=== PATIENT | male | born 1965 | race Caucasian/White ===

== ENCOUNTER → 2017-07-20 | Outpatient (CLI) | payer OTHER ==
[~2017-07-20] MED LIST: ACET-1256 PO; BENA20TA14 PO; CALCTAB7 PO; CPR500 PO; MTR500 PO; RIZA10TA19 PO
== END | disposition home or self-care (01) ==
LOC: C.LABBFT 10:28
PROVIDERS: ATTEND Physician Assistant Medical
DX: R10.2 Pelvic and perineal pain (principal)

== ENCOUNTER 2017-07-23 19:24 | Inpatient (IN) | payer OTHER ==
[~2017-07-23] VITALS: Ht 180.3 cm; Wt 75.2 kg
[~2017-07-23 19:24] MED LIST changes: -CALCTAB7 PO; -CPR500 PO; -MTR500 PO; -OPTIRAY 320 IV PRN
[2017-07-23 20:33] LABS: BASO % 0.1 %; BASO ABS # 0.02 K/uL (0-0.2); EOS % 0.3 %; EOS ABS # 0.04 K/uL (0-0.5); HEMATOCRIT 41.8 % (42-52); HEMOGLOBIN 14.5 g/dL (14.0-18.0); IG# 0.03 K/uL (0.00-0.02); LYMPH % 15.7 %; LYMPH ABS # 2.22 K/uL (1.2-3.4); MEAN CELL VOLUME 88.7 fL (80-100); MEAN CORPUSCULAR HEMOGLOBIN 30.8 pg (25-34); MEAN CORPUSCULAR HGB CONC 34.7 g/dl (32-36); MEAN PLATELET VOLUME 8.3 fL (7.4-10.4); MONO % 8.8 %; MONO ABS # 1.24 K/uL (0.11-0.59); NEUT % 74.9 %; NEUT ABS # 10.56 K/uL (1.4-6.5); PLATELET COUNT 314 K/uL (130-400); RED CELL DISTRIBUTION WIDTH CV 11.7 % (11.5-14.5); RED CELL DISTRIBUTION WIDTH SD 38.1 fL (36.4-46.3); WHITE BLOOD COUNT 14.11 K/uL (4.8-10.8)
[2017-07-23 20:53] LABS: ALBUMIN 3.1 gm/dl (3.4-5.0); CREATININE 1.11 mg/dl (0.60-1.40); POTASSIUM 3.5 mmol/L (3.5-5.1)
[2017-07-23 20:55] LABS: TOTAL PROTEIN 7.2 gm/dl (6.4-8.2)
[2017-07-23] MEDS ORDERED: SODIUM CHLORIDE 0.9% 1000ML 1,000 ML IV STA (21:19)
[2017-07-23] MEDS ORDERED: PIPERACILLIN/TAZOBACTAM 4.5 GM/100ML D5W IV STA (21:19)
[2017-07-23] MEDS ORDERED: METRONIDAZOLE 500MG / 100ML NSS IV STA (21:34)
--- NOTE | 2017-07-23 22:22 | EMERGENCY ROOM VISIT NOTE ---
ED Visit Note First contact with patient: 21:10 CHIEF COMPLAINT: Abdominal pain HISTORY OF PRESENTING ILLNESS: This is a 52-year-old male who presents to the emergency department with complaint of abdominal pain. Patient states that he started having lower abdominal pain 4 days ago, constant, aching and pressure- like, worse with some movements, better with rest. He saw his PCP on Sunday and was told he had a prostate infection, was started on Cipro which he has been taking. He states that his pain got worse yesterday and he also had flulike symptoms with fevers, chills, and body aches. He has also noticed some red blood mixed in with his stool yesterday and today. He saw his PCP again today, who ordered a CT abdomen/pelvis which he had done this morning. He was called and instructed to come to the emergency department because his CT scan was abnormal. He states his pain has been well-controlled today with ibuprofen and Renwick, currently rates as 3/10. He denies any history of abdominal infections, denies any abdominal surgeries. He denies any headaches, neck pain , chest pain, shortness of breath, back pain, nausea or vomiting, diarrhea, urinary symptoms, or unusual rash. REVIEW OF SYSTEMS: A complete 10 point review of systems was reviewed with the patient with pertinent positives and negatives as per history of present illness. All else were negative. PAST MEDICAL HISTORY: Hypertension, kidney stones FAMILY HISTORY: Father and uncle with prostate cancer SOCIAL HISTORY: Lives at home. Denies tobacco use, reports occasional alcohol use, denies recreational drug use. ALLERGIES: Reviewed in chart. PHYSICAL EXAM: CONSTITUTIONAL: Pleasant and cooperative. No acute distress. Well-hydrated, well appearing and well nourished. HEENT: Normocephalic, atraumatic. Pupils equal, round and reactive to light, EOMI. TMs normal. Pharynx normal. Moist mucous membranes. NECK: Supple, full active range of motion without discomfort. RESPIRATORY: Clear to auscultation bilaterally with no wheezing, crackles, rhonchi or stridor. Equal expansion bilaterally. CARDIOVASCULAR: Regular rate and rhythm with no murmurs, rubs or gallops. Normal peripheral perfusion. No edema. GASTROINTESTINAL: Soft, mild tenderness in the suprapubic area, otherwise nontender, nondistended. No rebound tenderness or guarding. No palpable masses or HSM. Bowel sounds present in all quadrants. No CVA tenderness bilaterally. MUSCULOSKELETAL: Full range of motion of all joints without discomfort. INTEGUMENTARY: No rash or other significant dermatologic conditions noted. NEUROLOGIC: Alert and oriented X 4 with normal affect. Normal strength and sensation in all 4 extremities. No focal neurologic deficits noted. Normal speech. Normal gait observed. ED COURSE AND MEDICAL DECISION MAKING: CC: Patient presenting with complaint of abdominal pain. DIFFERENTIAL DIAGNOSIS: Includes, but not limited to diverticulitis, intra- abdominal abscess, bowel perforation, bowel obstruction, malignancy, GI bleed, among others. INTERPRETATION OF LABS: Leukocytosis with left shift, no anemia, no significant electrolyte abnormalities, normal renal function, normal liver enzymes and lipase. UA negative for infection. IMAGING: ABD/PELVIS IV CONTRAST ONLY CLINICAL HISTORY: 52 years-old Male presenting with R10.32 Left lower quadrant abdominal pain of unknown etiology. TECHNIQUE: Multidetector CT of the abdomen and pelvis was performed after the administration of intravenous contrast. IV contrast: 120 mL of Optiray 320. A dose lowering technique was used consistent with the principles of ALARA (as low as reasonably achievable). COMPARISON: 05/26/2014. CT DOSE (mGy.cm): The estimated cumulative dose is 599.01 mGycm. 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 Lung bases: Minimal basilar opacities, likely atelectasis. Normal heart size. Small pericardial effusion. No pleural effusion. Liver: Normal morphology. Well-defined hypodensity in the left hepatic lobe likely hepatic cyst or hamartoma. Patent hepatic vasculature. Biliary: No intrahepatic or extrahepatic biliary ductal dilatation. Normal gallbladder. Pancreas: Normal. Spleen: Normal. Adrenal glands: Normal. Kidneys and ureters: Bilateral punctate nonobstructing nephrolithiasis. Normal renal parenchyma. Bilateral extrarenal pelvises. No hydronephrosis. Prominent parapelvic cysts suggested in the interpolar region of the left kidney. Ureters normal. Bladder: Normal. Pelvic organs: Prostate enlargement likely secondary to benign prostatic hyperplasia. Bowel: Wall thickening of the rectum. Diverticulosis of the sigmoid colon with extensive wall thickening of the mid sigmoid colon. Extraluminal foci of gas within a rim-enhancing fluid collection within the sigmoid colon mesentery consistent with abscess. This is situated along the left superior lateral aspect of the bladder dome though a fat plane between this collection and the bladder is preserved. Multiple loops of small bowel approach this collection though appear grossly uninvolved besides slight kinking, suggesting developing adhesions in this region. Prominence of the vasa recta. Moderate stool burden in the transverse colon. Extensive focal wall thickening of the ascending colon to the level of the hepatic flexure with associated prominence of the vasa recta and multiple small mesenteric lymph nodes. The appendix is normal. No bowel obstruction. Peritoneal cavity: No free intraperitoneal gas. Loculated collection adjacent to the sigmoid colon containing gas and fluid consistent with abscess. This collection measures 3.2 cm in maximal dimension. No free intraperitoneal fluid. No peritoneal nodularity. No significant peritoneal fascial thickening or enhancement. Lymph nodes: No pathologically enlarged lymph nodes in the abdomen or pelvis. Prominent mesenteric lymph nodes associated with the ascending colon and hepatic flexure as mentioned above. Vasculature: Aorta and IVC patent and normal in caliber. Abdominal wall: Normal. Musculoskeletal: Heterogeneity of the medullary cavity with trabecular thickening evident at the right pubic bone, unchanged, possibly Paget's disease or other benign etiology. IMPRESSION: 1. Findings consistent with acute complicated sigmoid diverticulitis with an adjacent 3.2 cm abscess. No free intraperitoneal gas though the abscess contains gas and fluid. 2. Highly suspicious wall thickening of the ascending colon to the level of the hepatic flexure. This is concerning for carcinoma of the colon. Gastroenterology consultation for colonoscopy recommended. 3. Bilateral nonobstructing nephrolithiasis. The report will be called/faxed according to standard departmental protocol. MEDICATION RECONCILIATION: I attest that I have personally reviewed the patient 's current medication list. INITIAL VITAL SIGNS REVIEW: I reviewed the patient's initial vital signs and interpret them as follows: T: Afebrile; BP: Hypertensive; HR: Within normal limits; RR: Within normal limits; Pulse Ox: Within normal limits on room air. Blood pressure screening: The patient was found to have an elevated blood pressure and was referred to the inpatient team for further management. SUMMARY: Patient was evaluated at bedside, history and physical exam performed. Patient is alert and oriented, no acute distress, resting calmly in stretcher. Patient has mild tenderness of the lower abdomen to palpation, abdomen is otherwise nontender with normal bowel sounds. I did review the CT scan from earlier today, noting concern for diverticulitis and 3.2 cm abscess, as well as suspicious wall thickening of the ascending colon concerning for colon carcinoma. No evidence of pneumoperitoneum or abdominal free fluid. Orders were placed at bedside for labs, IV Zosyn and Flagyl for broad coverage, and will keep him NPO. Patient discussed with Dr. Jaquez, who agrees with my assessment and plan. Labs and imaging reviewed as above. I spoke on the phone with Dr. Winters, general surgery, who does not feel that this abscess warrants surgical intervention at this time. He agrees to consult along with the patient. Dr. Washburn with [facility] team was requested to evaluate the patient for admission. Patient will most likely need a gastroenterology consult as well for a possible colonoscopy. Patient reassessed multiple times throughout ED stay, patient remained stable and without any complaints. Patient was updated on all results and plan for admission, and he verbalized understanding and was agreeable to this plan. Current/Historical Medications Scheduled Benazepril (Lotensin), 20 MG PO HS Allergies Coded Allergies: Sulfa Antibiotics (Verified Allergy, Mild, Itching, 11/11/15) Vital Signs Date Time Temp Pulse Resp B/P (MAP) Pulse Ox O2 Delivery O2 Flow Rate FiO2 07/23/17 22:14 71 18 128/95 99 Room Air 07/23/17 19:50 37.0 88 18 144/83 93 Room Air Laboratory Results 07/23/17 19:55 Red Blood Count 4.71, Mean Corpuscular Volume 88.7, Mean Corpuscular Hemoglobin 30.8, Mean Corpuscular Hemoglobin Concent 34.7, Mean Platelet Volume 8.3, Neutrophils (%) (Auto) 74.9, Lymphocytes (%) (Auto) 15.7, Monocytes (%) (Auto) 8.8, Eosinophils (%) (Auto) 0.3, Basophils (%) (Auto) 0.1, Neutrophils # (Auto) 10.56, Lymphocytes # (Auto) 2.22, Monocytes # (Auto) 1.24, Eosinophils # (Auto) 0.04, Basophils # (Auto) 0.02 07/23/17 19:55 Test 07/23/17 19:55 07/23/17 21:56 White Blood Count 14.11 K/uL (4.8-10.8) Red Blood Count 4.71 M/uL (4.7-6.1) Hemoglobin 14.5 g/dL (14.0-18.0) Hematocrit 41.8 % (42-52) Mean Corpuscular Volume 88.7 fL (80-100) Mean Corpuscular Hemoglobin 30.8 pg (25-34) Mean Corpuscular Hemoglobin Concent 34.7 g/dl (32-36) Platelet Count 314 K/uL (130-400) Mean Platelet Volume 8.3 fL (7.4-10.4) Neutrophils (%) (Auto) 74.9 % Lymphocytes (%) (Auto) 15.7 % Monocytes (%) (Auto) 8.8 % Eosinophils (%) (Auto) 0.3 % Basophils (%) (Auto) 0.1 % Neutrophils # (Auto) 10.56 K/uL (1.4-6.5) Lymphocytes # (Auto) 2.22 K/uL (1.2-3.4) Monocytes # (Auto) 1.24 K/uL (0.11-0.59) Eosinophils # (Auto) 0.04 K/uL (0-0.5) Basophils # (Auto) 0.02 K/uL (0-0.2) RDW Standard Deviation 38.1 fL (36.4-46.3) RDW Coefficient of Variation 11.7 % (11.5-14.5) Immature Granulocyte % (Auto) 0.2 % Immature Granulocyte # (Auto) 0.03 K/uL (0.00-0.02) Anion Gap 8.0 mmol/L (3-11) Est Creatinine Clear Calc Drug Dose 84.7 ml/min Estimated GFR () 89.3 Estimated GFR (Non- 77.0 BUN/Creatinine Ratio 10.5 (10-20) Calcium Level 9.0 mg/dl (8.5-10.1) Total Bilirubin 0.3 mg/dl (0.2-1) Aspartate Amino Transf (AST/SGOT) 13 U/L (15-37) Alanine Aminotransferase (ALT/SGPT) 17 U/L (12-78) Alkaline Phosphatase 77 U/L (45-117) Total Protein 7.2 gm/dl (6.4-8.2) Albumin 3.1 gm/dl (3.4-5.0) Globulin 4.1 gm/dl (2.5-4.0) Albumin/Globulin Ratio 0.8 (0.9-2) Lipase 84 U/L (73-393) Urine Color YELLOW Urine Appearance CLEAR (CLEAR) Urine pH 6.5 (4.5-7.5) Urine Specific [place] > 1.045 (1.000-1.030) Urine Protein TRACE (NEG) Urine Glucose (UA) NEG (NEG) Urine Ketones NEG (NEG) Urine Occult Blood NEG (NEG) Urine Nitrite NEG (NEG) Urine Bilirubin NEG (NEG) Urine Urobilinogen NEG (NEG) Urine Leukocyte Esterase NEG (NEG) Urine WBC (Auto) 1-5 /hpf (0-5) Urine RBC (Auto) 0-4 /hpf (0-4) Urine Hyaline Casts (Auto) 0 /lpf (0-5) Urine Epithelial Cells (Auto) 10-20 /lpf (0-5) Urine Bacteria (Auto) NEG (NEG) Medications Administered Medications (Trade) Dose Ordered Sig/Mita Route Start Time Stop Time Status Last Admin Dose Admin Piperacillin Sod/ Tazobactam Sod (Zosyn Iv) 4.5 gm NOW STAT IV 07/23/17 21:19 07/23/17 21:22 DC 07/23/17 21:19 4.5 GM Sodium Chloride 1,000 ml @ 999 mls/hr Q1H1M STAT IV 07/23/17 21:19 07/23/17 22:19 DC 07/23/17 22:05 999 MLS/HR Metronidazole (Flagyl / Nss) 500 mg NOW STAT IV 07/23/17 21:34 07/23/17 21:35 DC 07/23/17 21:34 500 MG Departure Information Impression Primary Impression: Abscess of sigmoid colon due to diverticulitis Additional Impression: Colitis, acute Dispostion Being Evaluated By Hospitalist Condition FAIR Referrals Cuba Washington M.D. (PCP) Patient Instructions [facility] Problem Qualifiers
[2017-07-24] MEDS ORDERED: ONDANSETRON INJ 2 MG/ML 2 ML VIAL IV PRN (00:15)
[2017-07-24] MEDS ORDERED: PIPERACILL/TAZOBAC CONSULT ACTIVE PRN (00:15)
[2017-07-24] MEDS ORDERED: ZOLPIDEM TARTRATE 5 MG TAB PO PRN (00:15)
--- NOTE | 2017-07-24 00:24 | History and Physical ---
History & Physical Date & Time of Service: Jul 24, 2017 at 00:14 Chief Complaint: Diverticulitis- Referred Primary Care Physician: Cuba Washington M.D. History of Present Illness Source: patient, hospital records 52 y/o M Hx HTN, renal calculi. Presents with persistent pain in his LLQ. He has had loose stools without diarrhea, nausea, vomiting or fevers. A CT abdomen is consistent with acute sigmoid diverticulitis with an adjacent 3.2 cm abscess. Incidentally, there is thickening of the ascending colonic wall which is concerning for CA. He denies excessive weight loss, fatigue or night sweats. 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 Smoking Status: Never Smoker Drug Use: none Marital Status: Housing status: lives with family Occupational Status: employed Allergies Coded Allergies: Sulfa Antibiotics (Verified Allergy, Mild, Itching, 11/11/15) Home Medications Scheduled Benazepril (Lotensin), 20 MG PO HS Review of Systems Constitutional: No fever, No chills, No sweats Eyes: No worsening of vision ENT: No hearing loss, No unusual epistaxis, No nasal symptoms Respiratory: No cough, No sputum, No wheezing Cardiovascular: No chest pain Abdomen: + pain, No nausea Musculoskeletal: No joint pain Genitourinary - Male: No hematuria, No dysuria Neurologic: No memory loss, No paralysis, No weakness Psychiatric: No depression symptoms Endocrine: No fatigue Hematologic / Lymphatic: No abnormal bleeding/bruising Integumentary: No rash Allergic / Immunologic: No environmental allergies Physical Exam Vital Signs Date Time Temp Pulse Resp B/P (MAP) Pulse Ox O2 Delivery O2 Flow Rate FiO2 07/23/17 22:14 71 18 128/95 99 Room Air 07/23/17 19:50 37.0 88 18 144/83 93 Room Air General Appearance: WD/WN, no apparent distress Head: normocephalic Eyes: normal inspection ENT: normal ENT inspection, pharynx normal Neck: supple Respiratory/Chest: chest non-tender, lungs clear, normal breath sounds Cardiovascular: regular rate, rhythm, no edema, no gallop Abdomen/GI: + pertinent finding (Mild LLQ/suprapubic tenderness) Back: normal inspection, no CVA tenderness, no muscle spasm 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, no motor/sensory deficits, alert, oriented x 3 Skin: normal color Diagnostics Laboratory Results Results Past 24 Hours Test 07/23/17 19:55 07/23/17 21:56 Range/Units White Blood Count 14.11 4.8-10.8 K/uL Red Blood Count 4.71 4.7-6.1 M/uL Hemoglobin 14.5 14.0-18.0 g/dL Hematocrit 41.8 42-52 % Mean Corpuscular Volume 88.7 80-100 fL Mean Corpuscular Hemoglobin 30.8 25-34 pg Mean Corpuscular Hemoglobin Concent 34.7 32-36 g/dl Platelet Count 314 130-400 K/uL Mean Platelet Volume 8.3 7.4-10.4 fL Neutrophils (%) (Auto) 74.9 % Lymphocytes (%) (Auto) 15.7 % Monocytes (%) (Auto) 8.8 % Eosinophils (%) (Auto) 0.3 % Basophils (%) (Auto) 0.1 % Neutrophils # (Auto) 10.56 1.4-6.5 K/uL Lymphocytes # (Auto) 2.22 1.2-3.4 K/uL Monocytes # (Auto) 1.24 0.11-0.59 K/uL Eosinophils # (Auto) 0.04 0-0.5 K/uL Basophils # (Auto) 0.02 0-0.2 K/uL RDW Standard Deviation 38.1 36.4-46.3 fL RDW Coefficient of Variation 11.7 11.5-14.5 % Immature Granulocyte % (Auto) 0.2 % Immature Granulocyte # (Auto) 0.03 0.00-0.02 K/uL Sodium Level 137 136-145 mmol/L Potassium Level 3.5 3.5-5.1 mmol/L Chloride Level 101 98-107 mmol/L Carbon Dioxide Level 28 21-32 mmol/L Anion Gap 8.0 3-11 mmol/L Blood Urea Nitrogen 12 7-18 mg/dl Creatinine 1.11 0.60-1.40 mg/dl Est Creatinine Clear Calc Drug Dose 84.7 ml/min Estimated GFR () 89.3 Estimated GFR (Non- 77.0 BUN/Creatinine Ratio 10.5 10-20 Random Glucose 78 70-99 mg/dl Calcium Level 9.0 8.5-10.1 mg/dl Total Bilirubin 0.3 0.2-1 mg/dl Aspartate Amino Transf (AST/SGOT) 13 15-37 U/L Alanine Aminotransferase (ALT/SGPT) 17 12-78 U/L Alkaline Phosphatase 77 45-117 U/L Total Protein 7.2 6.4-8.2 gm/dl Albumin 3.1 3.4-5.0 gm/dl Globulin 4.1 2.5-4.0 gm/dl Albumin/Globulin Ratio 0.8 0.9-2 Lipase 84 73-393 U/L Urine Color YELLOW Urine Appearance CLEAR CLEAR Urine pH 6.5 4.5-7.5 Urine Specific [place] > 1.045 1.000-1.030 Urine Protein TRACE NEG Urine Glucose (UA) NEG NEG Urine Ketones NEG NEG Urine Occult Blood NEG NEG Urine Nitrite NEG NEG Urine Bilirubin NEG NEG Urine Urobilinogen NEG NEG Urine Leukocyte Esterase NEG NEG Urine WBC (Auto) 1-5 0-5 /hpf Urine RBC (Auto) 0-4 0-4 /hpf Urine Hyaline Casts (Auto) 0 0-5 /lpf Urine Epithelial Cells (Auto) 10-20 0-5 /lpf Urine Bacteria (Auto) NEG NEG Diagnostic Radiology IMPRESSION: 1. Findings consistent with acute complicated sigmoid diverticulitis with an adjacent 3.2 cm abscess. No free intraperitoneal gas though the abscess contains gas and fluid. 2. Highly suspicious wall thickening of the ascending colon to the level of the hepatic flexure. This is concerning for carcinoma of the colon. Gastroenterology consultation for colonoscopy recommended. 3. Bilateral nonobstructing nephrolithiasis. Impression Assessment and Plan 52 y/o M Hx HTN, renal calculi. Presents with persistent pain in his LLQ. He has had loose stools without diarrhea, nausea, vomiting or fevers. A CT abdomen is consistent with acute sigmoid diverticulitis with an adjacent 3.2 cm abscess. Incidentally, there is thickening of the ascending colonic wall which is concerning for CA. He denies excessive weight loss, fatigue or night sweats. 1) Diverticulitis with abscess - Provided with Zosyn, surgery consulted. NPO, IVF, analgesics provided. 2) HTN - Benazepril held pending surgery evaluation 3) R colon mass on CT - incidental. Following resolution of infection, he will need to follow with GI to evaluate for CA. AFP ordered. Should the pt require surgical intervention for diverticulitis, biopsy of mass should be considered prior, as if he requires resection he might be able to avoid 2 surgeries. Full code - Heparin prophylaxis Total time for this admit including review of labs, meds, imaging, records - discussion withpt and ER attending - 37 min Resuscitation Status VTE Prophylaxis Will order VTE Prophylaxis: Yes
[2017-07-24 01:40] VITALS: BP 156/99; PULSE 69; TEMP 36.7; O2SAT 97; O2SAT 98; Ht 180.3 cm; Wt 75.2 kg
[2017-07-24] MEDS: D5NSS + 20MEQ KCL 1,000 ML IV SCH ×3 (02:22→20:29)
[2017-07-24] MEDS: PIPERACILL/TAZOBAC IV 3.375 GM in SODIUM CHLORIDE 0.9% 100ML 100 ML IV SCH ×3 (02:22→18:22)
[2017-07-24 02:28] LABS: INR 1.1 (0.9-1.1)
[2017-07-24] MEDS: ACETAMINOPHEN 325 MG TAB PO PRN (07:17)
[2017-07-24 07:44] VITALS: BP 128/84; PULSE 69; TEMP 36.5; O2SAT 97
[2017-07-24 07:50] LABS: HEMATOCRIT 38.3 % (42-52); HEMOGLOBIN 13.5 g/dL (14.0-18.0); MEAN CELL VOLUME 87.6 fL (80-100); MEAN CORPUSCULAR HEMOGLOBIN 30.9 pg (25-34); MEAN CORPUSCULAR HGB CONC 35.2 g/dl (32-36); MEAN PLATELET VOLUME 7.9 fL (7.4-10.4); PLATELET COUNT 230 K/uL (130-400); RED CELL DISTRIBUTION WIDTH CV 11.7 % (11.5-14.5); RED CELL DISTRIBUTION WIDTH SD 37.3 fL (36.4-46.3); WHITE BLOOD COUNT 8.51 K/uL (4.8-10.8)
[2017-07-24 08:18] LABS: CALCIUM 8.1 mg/dl (8.5-10.1); CREATININE 0.84 mg/dl (0.60-1.40); POTASSIUM 3.5 mmol/L (3.5-5.1)
[2017-07-24] MEDS: HEPARIN SOD 5000 UNIT/0.5 ML CARP SQ SCH ×2 (09:00→20:31)
--- NOTE | 2017-07-24 10:35 | Surgery Consultation ---
Consultation Date of Consultation: Jul 24, 2017. Attending Physician: Hugo Washburn M.D. History of Present Illness 52 y/o M Hx HTN, renal calculi. Presents with persistent pain in his LLQ. He has had loose stools without diarrhea, nausea, vomiting or fevers. A CT abdomen is consistent with acute sigmoid diverticulitis with an adjacent 3.2 cm abscess. Incidentally, there is thickening of the ascending colonic wall which is concerning for CA. He denies excessive weight loss, fatigue or night sweats. I saw pt at bedside, I reviewed pt's H/P with pt, now pt feels much better, pt denies abdominal pain, no nausea, no vomiting, no fever, passed BM, Past Medical/Surgical History Medical Problems: (1) Abscess of sigmoid colon due to diverticulitis Status: Acute (2) Colitis, acute Status: Acute (3) Eye foreign body Status: Acute Social History Smoking Status: Never Smoker Smokeless Tobacco Use: No Alcohol Use: occasionally Drug Use: none Marital Status: Housing Status: lives with family Occupation Status: employed Allergies Coded Allergies: Sulfa Antibiotics (Verified Allergy, Mild, Itching, 11/11/15) Home Medications Scheduled Benazepril (Lotensin), 20 MG PO HS Current Inpatient Medications Current Inpatient Medications Medications (Trade) Dose Ordered Sig/Mita Route Start Time Stop Time Status Last Admin Dose Admin Benazepril HCl (Lotensin Tab) 20 mg HS PO 07/24/17 21:00 08/23/17 20:59 Piperacillin Sod/ Tazobactam Sod 3.375 gm/Sodium Chloride 115 ml @ 28.75 mls/ hr Q8H IV 07/24/17 02:00 08/03/17 01:59 07/24/17 09:49 28.75 MLS/HR Miscellaneous Information (Consult) 1 ea UD PRN N/A 07/24/17 00:15 08/23/17 00:14 Acetaminophen (Tylenol Tab) 650 mg Q4H PRN PO 07/24/17 00:15 08/23/17 00:14 07/24/17 07:17 650 MG Zolpidem Tartrate (Ambien Tab) 5 mg HSZ PRN PO 07/24/17 00:15 08/23/17 00:14 Ondansetron HCl (Zofran Inj) 4 mg Q6H PRN IV 07/24/17 00:15 08/23/17 00:14 07/24/17 09:49 4 MG Heparin Sodium (Porcine) (Heparin Sq 5000 Unit/0.5ml) 5,000 unit Q12H SQ 07/24/17 09:00 08/23/17 08:59 Potassium Chloride/Dextrose/ Sod Cl 1,000 ml @ 100 mls/hr Q10H IV 07/24/17 02:00 07/25/17 07:59 07/24/17 02:22 100 MLS/HR Review of Systems Constitutional: No fever, No chills, No sweats, No weight loss, No weakness, No fatigue, No problem reported Eyes: No worsening of vision, No eye pain, No redness, No discharge, No diplopia, No problem reported ENT: No hearing loss, No unusual epistaxis, No nasal symptoms, No sore throat, No tinnitus, No dental problems, No trouble swallowing, No problem reported Respiratory: No cough, No sputum, No wheezing, No shortness of breath, No dyspnea on exertion, No dyspnea at rest, No hemoptysis, No problem reported Cardiovascular: No chest pain, No orthopnea, No PND, No edema, No claudication , No palpitations, No problem reported Abdomen: No pain, No nausea, No vomiting, No diarrhea, No constipation, No GI bleeding, No problem reported Musculoskeletal: No joint pain, No muscle pain, No swelling, No calf pain, No problem reported Genitourinary - Male: No hematuria, No dysuria, No urinary frequency, No urinary urgency, No urinary hesitancy, No urinary retention, No urinary incontinence, No penile discharge, No lesions, No impotence, No problem reported Neurologic: No memory loss, No paralysis, No weakness, No numbness/tingling, No vertigo, No balance problems, No problem reported Psychiatric: No depression symptoms, No anhedonism, No anxiety, No insomnia, No substance abuse, No problem reported Endocrine: No fatigue, No excessive thirst, No excessive urination, No problem reported Hematologic / Lymphatic: No abnormal bleeding/bruising, No clotting problems, No swollen lymph nodes, No night sweats, No problem reported Physical Exam Date Time Temp Pulse Resp B/P (MAP) Pulse Ox O2 Delivery O2 Flow Rate FiO2 07/24/17 07:44 36.5 69 18 128/84 (99) 97 Room Air 07/24/17 07:05 Room Air 07/24/17 01:40 98 Room Air 07/24/17 01:40 36.7 69 14 156/99 (118) 97 Room Air 07/24/17 01:40 36.7 69 14 156/99 98 Room Air 07/24/17 01:26 68 18 139/91 98 07/24/17 00:10 77 18 129/89 99 Room Air 07/23/17 22:14 71 18 128/95 99 Room Air 07/23/17 19:50 37.0 88 18 144/83 93 Room Air General Appearance: WD/WN, no apparent distress Head: normocephalic Eyes: normal inspection ENT: normal ENT inspection Neck: supple, no JVD Respiratory/Chest: chest non-tender, lungs clear, normal breath sounds, no respiratory distress Cardiovascular: regular rate, rhythm, no edema, no gallop, no JVD, no murmur Abdomen/GI: normal bowel sounds, non tender, soft, no organomegaly, no pulsatile mass Extremities/Musculoskelatal: normal inspection, no calf tenderness, normal capillary refill Neurologic/Psych: no motor/sensory deficits, alert, normal mood/affect Skin: normal color, warm/dry, no rash Lymphatic: no adenopathy Laboratory Results Last 24 Hours Test 07/23/17 19:55 07/23/17 21:56 07/24/17 07:38 White Blood Count 14.11 K/uL 8.51 K/uL Red Blood Count 4.71 M/uL 4.37 M/uL Hemoglobin 14.5 g/dL 13.5 g/dL Hematocrit 41.8 % 38.3 % Mean Corpuscular Volume 88.7 fL 87.6 fL Mean Corpuscular Hemoglobin 30.8 pg 30.9 pg Mean Corpuscular Hemoglobin Concent 34.7 g/dl 35.2 g/dl Platelet Count 314 K/uL 230 K/uL Mean Platelet Volume 8.3 fL 7.9 fL Neutrophils (%) (Auto) 74.9 % Lymphocytes (%) (Auto) 15.7 % Monocytes (%) (Auto) 8.8 % Eosinophils (%) (Auto) 0.3 % Basophils (%) (Auto) 0.1 % Neutrophils # (Auto) 10.56 K/uL Lymphocytes # (Auto) 2.22 K/uL Monocytes # (Auto) 1.24 K/uL Eosinophils # (Auto) 0.04 K/uL Basophils # (Auto) 0.02 K/uL RDW Standard Deviation 38.1 fL 37.3 fL RDW Coefficient of Variation 11.7 % 11.7 % Immature Granulocyte % (Auto) 0.2 % Immature Granulocyte # (Auto) 0.03 K/uL Prothrombin Time 11.5 SECONDS Prothromb Time International Ratio 1.1 Sodium Level 137 mmol/L 138 mmol/L Potassium Level 3.5 mmol/L 3.5 mmol/L Chloride Level 101 mmol/L 106 mmol/L Carbon Dioxide Level 28 mmol/L 24 mmol/L Anion Gap 8.0 mmol/L 8.0 mmol/L Blood Urea Nitrogen 12 mg/dl 13 mg/dl Creatinine 1.11 mg/dl 0.84 mg/dl Est Creatinine Clear Calc Drug Dose 84.7 ml/min 111.9 ml/min Estimated GFR () 89.3 118.3 Estimated GFR (Non- 77.0 102.1 BUN/Creatinine Ratio 10.5 15.3 Random Glucose 78 mg/dl 91 mg/dl Calcium Level 9.0 mg/dl 8.1 mg/dl Total Bilirubin 0.3 mg/dl Aspartate Amino Transf (AST/SGOT) 13 U/L Alanine Aminotransferase (ALT/SGPT) 17 U/L Alkaline Phosphatase 77 U/L Total Protein 7.2 gm/dl Albumin 3.1 gm/dl Globulin 4.1 gm/dl Albumin/Globulin Ratio 0.8 Lipase 84 U/L Urine Color YELLOW Urine Appearance CLEAR Urine pH 6.5 Urine Specific [place] > 1.045 Urine Protein TRACE Urine Glucose (UA) NEG Urine Ketones NEG Urine Occult Blood NEG Urine Nitrite NEG Urine Bilirubin NEG Urine Urobilinogen NEG Urine Leukocyte Esterase NEG Urine WBC (Auto) 1-5 /hpf Urine RBC (Auto) 0-4 /hpf Urine Hyaline Casts (Auto) 0 /lpf Urine Epithelial Cells (Auto) 10-20 /lpf Urine Bacteria (Auto) NEG Magnesium Level 2.1 mg/dl Assessment & Plan FINDINGS: End Worker topogram: Unremarkable. Lung bases: Minimal basilar opacities, likely atelectasis. Normal heart size. Small pericardial effusion. No pleural effusion. Liver: Normal morphology. Well-defined hypodensity in the left hepatic lobe likely hepatic cyst or hamartoma. Patent hepatic vasculature. Biliary: No intrahepatic or extrahepatic biliary ductal dilatation. Normal gallbladder. Pancreas: Normal. Spleen: Normal. Adrenal glands: Normal. Kidneys and ureters: Bilateral punctate nonobstructing nephrolithiasis. Normal renal parenchyma. Bilateral extrarenal pelvises. No hydronephrosis. Prominent parapelvic cysts suggested in the interpolar region of the left kidney. Ureters normal. Bladder: Normal. Pelvic organs: Prostate enlargement likely secondary to benign prostatic hyperplasia. Bowel: Wall thickening of the rectum. Diverticulosis of the sigmoid colon with extensive wall thickening of the mid sigmoid colon. Extraluminal foci of gas within a rim-enhancing fluid collection within the sigmoid colon mesentery consistent with abscess. This is situated along the left superior lateral aspect of the bladder dome though a fat plane between this collection and the bladder is preserved. Multiple loops of small bowel approach this collection though appear grossly uninvolved besides slight kinking, suggesting developing adhesions in this region. Prominence of the vasa recta. Moderate stool burden in the transverse colon. Extensive focal wall thickening of the ascending colon to the level of the hepatic flexure with associated prominence of the vasa recta and multiple small mesenteric lymph nodes. The appendix is normal. No bowel obstruction. Peritoneal cavity: No free intraperitoneal gas. Loculated collection adjacent to the sigmoid colon containing gas and fluid consistent with abscess. This collection measures 3.2 cm in maximal dimension. No free intraperitoneal fluid. No peritoneal nodularity. No significant peritoneal fascial thickening or enhancement. Lymph nodes: No pathologically enlarged lymph nodes in the abdomen or pelvis. Prominent mesenteric lymph nodes associated with the ascending colon and hepatic flexure as mentioned above. Vasculature: Aorta and IVC patent and normal in caliber. Abdominal wall: Normal. Musculoskeletal: Heterogeneity of the medullary cavity with trabecular thickening evident at the right pubic bone, unchanged, possibly Paget's disease or other benign etiology. IMPRESSION: 1. Findings consistent with acute complicated sigmoid diverticulitis with an adjacent 3.2 cm abscess. No free intraperitoneal gas though the abscess contains gas and fluid. 2. Highly suspicious wall thickening of the ascending colon to the level of the hepatic flexure. This is concerning for carcinoma of the colon. Gastroenterology consultation for colonoscopy recommended. 3. Bilateral nonobstructing nephrolithiasis. Assessment: pt is a 52 year old male who was admitted to hospital for acute sigmoid diverticulitis with abscess, and ascending colon thickening p is doing better, no abdominal pain, IMP: acute sigmoid diverticulitis with abscess, and ascending colon thickening plan: consult GI for colonoscopy to R/O ascending colon polyps or tumor continue IV antibiotic, clear diet, will F/U
--- NOTE | 2017-07-24 11:48 | Gastrointestinal Consultation ---
Gastrointestinal Consultation Date of Consultation: Jul 24, 2017 Attending Physician: Johnny Consulting Physician: Alejandra Reason for Consultation: abnormal CT scan History of Present Illness Patient is a 52 year old male w/ history of HTN, migraines who presented to [facility] from OP clinic for abnormal CT imaging. Pt was seen and evaluated, chart reviewed. Pt notes he was in his typical state of health up until about three weeks ago. Generalized abdominal pain. Intermittent throughout the day, worse at night associated with bloating. Pain persisted and he presented to his PCP who prescribed cipro for prostatitis. Symptoms persisted, returned to PCP who ordered CT which was concerning for sigmoid diverticulitis with microperforation and 3 CM abscess. Pt was admitted, started on IV ABX and evaluated by general surgery who at this time suggested conservative management. He does not improvement of his symptoms overnight. Now with mild generalized abdominal tenderness, only present w/ deep palpation. No nausea, vomiting. Has been having looser stools. Was having some BRB streaking limited to the toilet paper. No night sweats, weight loss, fever, chills, CP, SOB CT ABD/Pelvis: Findings consistent with acute complicated sigmoid diverticulitis with an adjacent 3.2 cm abscess. No free intraperitoneal gas though the abscess contains gas and fluid. Highly suspicious wall thickening of the ascending colon to the level of the hepatic flexure. This is concerning for carcinoma of the colon. Gastroenterology consultation for colonoscopy recommended. Bilateral nonobstructing nephrolithiasis. EGD: none Colonoscopy: none Family history of colon CA: none - although it is mentioned that his father has colon CA in previous notes Family history of colonic polyp: none Past Medical/Surgical History Medical Problems: (1) Abscess of sigmoid colon due to diverticulitis Status: Acute (2) Colitis, acute Status: Acute (3) Eye foreign body Status: Acute Past Medical History: HTN, migraines Past Surgical History: none Social History Smoking Status: Never Smoker Alcohol Use: none Drug Use: none Marital Status: Housing Status: lives with family Occupation Status: employed Allergies Coded Allergies: Sulfa Antibiotics (Verified Allergy, Mild, Itching, 11/11/15) Current Medications Home Meds and Scripts Medications Dose Route/Sig Max Daily Dose Days Date Category Lotensin (Benazepril HCl) 20 Mg Tab 20 Mg PO HS 06/22/14 Reported Review of Systems Constitutional: No fever, No chills, No weight loss, No weakness, No fatigue Respiratory: No cough, No shortness of breath Cardiac: No chest pain, No edema Abdomen: + pain, No nausea, No vomiting, No diarrhea, No constipation, No GI bleeding Physical Exam Date Time Temp Pulse Resp B/P (MAP) Pulse Ox O2 Delivery O2 Flow Rate FiO2 07/24/17 07:44 36.5 69 18 128/84 (99) 97 Room Air 07/24/17 07:05 Room Air 07/24/17 01:40 98 Room Air 07/24/17 01:40 36.7 69 14 156/99 (118) 97 Room Air 07/24/17 01:40 36.7 69 14 156/99 98 Room Air 07/24/17 01:26 68 18 139/91 98 07/24/17 00:10 77 18 129/89 99 Room Air 07/23/17 22:14 71 18 128/95 99 Room Air 07/23/17 19:50 37.0 88 18 144/83 93 Room Air General Appearance: no apparent distress Eyes: PERRL ENT: hearing grossly normal Neck: supple, trachea midline Respiratory/Chest: lungs clear, normal breath sounds, no respiratory distress, no accessory muscle use Cardiovascular: regular rate, rhythm, no edema, no JVD, no murmur Abdomen: normal bowel sounds, soft, no organomegaly, no pulsatile mass, + tenderness (LLQ pain with palpation ) Neurologic/Psych: alert, normal mood/affect, oriented x 3 Skin: normal color, warm/dry, no rash Laboratory Results Last 24 Hours Test 07/23/17 19:55 07/23/17 21:56 07/24/17 07:38 White Blood Count 14.11 K/uL 8.51 K/uL Red Blood Count 4.71 M/uL 4.37 M/uL Hemoglobin 14.5 g/dL 13.5 g/dL Hematocrit 41.8 % 38.3 % Mean Corpuscular Volume 88.7 fL 87.6 fL Mean Corpuscular Hemoglobin 30.8 pg 30.9 pg Mean Corpuscular Hemoglobin Concent 34.7 g/dl 35.2 g/dl Platelet Count 314 K/uL 230 K/uL Mean Platelet Volume 8.3 fL 7.9 fL Neutrophils (%) (Auto) 74.9 % Lymphocytes (%) (Auto) 15.7 % Monocytes (%) (Auto) 8.8 % Eosinophils (%) (Auto) 0.3 % Basophils (%) (Auto) 0.1 % Neutrophils # (Auto) 10.56 K/uL Lymphocytes # (Auto) 2.22 K/uL Monocytes # (Auto) 1.24 K/uL Eosinophils # (Auto) 0.04 K/uL Basophils # (Auto) 0.02 K/uL RDW Standard Deviation 38.1 fL 37.3 fL RDW Coefficient of Variation 11.7 % 11.7 % Immature Granulocyte % (Auto) 0.2 % Immature Granulocyte # (Auto) 0.03 K/uL Prothrombin Time 11.5 SECONDS Prothromb Time International Ratio 1.1 Sodium Level 137 mmol/L 138 mmol/L Potassium Level 3.5 mmol/L 3.5 mmol/L Chloride Level 101 mmol/L 106 mmol/L Carbon Dioxide Level 28 mmol/L 24 mmol/L Anion Gap 8.0 mmol/L 8.0 mmol/L Blood Urea Nitrogen 12 mg/dl 13 mg/dl Creatinine 1.11 mg/dl 0.84 mg/dl Est Creatinine Clear Calc Drug Dose 84.7 ml/min 111.9 ml/min Estimated GFR () 89.3 118.3 Estimated GFR (Non- 77.0 102.1 BUN/Creatinine Ratio 10.5 15.3 Random Glucose 78 mg/dl 91 mg/dl Calcium Level 9.0 mg/dl 8.1 mg/dl Total Bilirubin 0.3 mg/dl Aspartate Amino Transf (AST/SGOT) 13 U/L Alanine Aminotransferase (ALT/SGPT) 17 U/L Alkaline Phosphatase 77 U/L Total Protein 7.2 gm/dl Albumin 3.1 gm/dl Globulin 4.1 gm/dl Albumin/Globulin Ratio 0.8 Lipase 84 U/L Urine Color YELLOW Urine Appearance CLEAR Urine pH 6.5 Urine Specific [place] > 1.045 Urine Protein TRACE Urine Glucose (UA) NEG Urine Ketones NEG Urine Occult Blood NEG Urine Nitrite NEG Urine Bilirubin NEG Urine Urobilinogen NEG Urine Leukocyte Esterase NEG Urine WBC (Auto) 1-5 /hpf Urine RBC (Auto) 0-4 /hpf Urine Hyaline Casts (Auto) 0 /lpf Urine Epithelial Cells (Auto) 10-20 /lpf Urine Bacteria (Auto) NEG Magnesium Level 2.1 mg/dl Impression Patient is a 52 year old male who was admitted w/ generalized abdominal pain worse in LLQ x 3 weeks w/ acute sigmoid diverticulitis with abscess. Concern for large polyp vs malignancy of ascending colon on CT. No alarm symptoms, questionable family history of colon CA in dad. Plan - Diverticulitis - appreciate management by surgery - clear liquids - analgesia PRN - continue IV ABX - Ascending colon mass vs wall thickening - OP colonoscopy to be arranged due to acute complicated diverticulitis w/ abscess - compliance with this follow up was stressed - Please call with any questions or concerns. I performed a history and physical examination of the patient. I have discussed the patient's case, impression and plan with EDILIA Blair. Her note reflects my findings and plan. Colonoscopy after treatment of acute diverticulitis. Kunal Skelton MD
[2017-07-24] MEDS ORDERED: NURSING VERBAL MED ORDER ONE (13:00)
[2017-07-24] MEDS ORDERED: RIZATRIPTAN BENZOATE 10 MG TAB PO ONE (13:15)
[2017-07-24 14:35] VITALS: BP 105/64; PULSE 60; TEMP 36.5; O2SAT 97
[2017-07-24] MEDS: BENAZEPRIL HCL 10 MG TAB PO SCH (20:29)
--- NOTE | 2017-07-24 22:29 | Progress Note ---
Progress Note Date of Service Jul 24, 2017. Progress Note Patient reports feeling improvement in regards to his pain. Patient is asking to advance his diet today. Explained to patient that will hold off until tomorrow. Will reassess and discuss with surgery and GI team. Will continue antibiotics.
[2017-07-24 23:20] VITALS: BP 130/79; PULSE 60; TEMP 36.9; O2SAT 98
[2017-07-25] MEDS: PIPERACILL/TAZOBAC IV 3.375 GM in SODIUM CHLORIDE 0.9% 100ML 100 ML IV SCH ×3 (01:33→17:36)
[2017-07-25 08:57] VITALS: BP 124/86; PULSE 58; TEMP 36.9; O2SAT 97
[2017-07-25] MEDS: HEPARIN SOD 5000 UNIT/0.5 ML CARP SQ SCH ×2 (09:00→20:51)
[2017-07-25] MEDS: ACETAMINOPHEN 325 MG TAB PO PRN (09:22)
[2017-07-25 09:57] LABS: HEMATOCRIT 41.5 % (42-52); HEMOGLOBIN 14.6 g/dL (14.0-18.0); MEAN CELL VOLUME 88.3 fL (80-100); MEAN CORPUSCULAR HEMOGLOBIN 31.1 pg (25-34); MEAN CORPUSCULAR HGB CONC 35.2 g/dl (32-36); MEAN PLATELET VOLUME 8.2 fL (7.4-10.4); PLATELET COUNT 287 K/uL (130-400); RED CELL DISTRIBUTION WIDTH CV 11.6 % (11.5-14.5); RED CELL DISTRIBUTION WIDTH SD 37.8 fL (36.4-46.3); WHITE BLOOD COUNT 6.25 K/uL (4.8-10.8)
[2017-07-25 10:29] LABS: CALCIUM 8.8 mg/dl (8.5-10.1); CREATININE 0.93 mg/dl (0.60-1.40); POTASSIUM 4.2 mmol/L (3.5-5.1)
[2017-07-25] MEDS ORDERED: BISACODYL 5 MG TABEC PO ONE (11:15)
[2017-07-25 12:58] VITALS: BP 118/68; PULSE 70; TEMP 37.2; O2SAT 98
--- NOTE | 2017-07-25 14:00 | Surgery Progress Note ---
Surgery Progress Note Date of Service Jul 25, 2017. Subjective Post OP Day: HD # 1 + feeling well, + complaints (back pain from sitting in the bed), + ambulating, + flatus, + diet (clear liquids), No chest pain, No SOB, No bowel movement, No nausea, No vomiting Objective Vital Signs: Date Time Temp Pulse Resp B/P (MAP) Pulse Ox O2 Delivery O2 Flow Rate FiO2 07/25/17 12:58 37.2 70 20 118/68 (85) 98 Room Air 07/25/17 08:57 36.9 58 20 124/86 (99) 97 Room Air 07/25/17 08:10 Room Air 07/24/17 23:20 36.9 60 16 130/79 (96) 98 Room Air 07/24/17 19:15 Room Air 07/24/17 16:00 Room Air 07/24/17 14:35 36.5 60 18 105/64 (78) 97 Room Air General Appearance: WD/WN, no apparent distress Head: normocephalic, atraumatic Neck: trachea midline Respiratory/Chest: lungs clear, normal breath sounds, no respiratory distress, no accessory muscle use Cardiovascular: regular rate, rhythm, no murmur Abdomen: normal bowel sounds, non tender, non distended, soft, no organomegaly , no pulsatile mass Laboratory Results: Results Past 24 Hours Test 07/25/17 09:42 Range/Units White Blood Count 6.25 4.8-10.8 K/uL Red Blood Count 4.70 4.7-6.1 M/uL Hemoglobin 14.6 14.0-18.0 g/dL Hematocrit 41.5 42-52 % Mean Corpuscular Volume 88.3 80-100 fL Mean Corpuscular Hemoglobin 31.1 25-34 pg Mean Corpuscular Hemoglobin Concent 35.2 32-36 g/dl RDW Standard Deviation 37.8 36.4-46.3 fL RDW Coefficient of Variation 11.6 11.5-14.5 % Platelet Count 287 130-400 K/uL Mean Platelet Volume 8.2 7.4-10.4 fL Sodium Level 139 136-145 mmol/L Potassium Level 4.2 3.5-5.1 mmol/L Chloride Level 106 98-107 mmol/L Carbon Dioxide Level 29 21-32 mmol/L Anion Gap 5.0 3-11 mmol/L Blood Urea Nitrogen 5 7-18 mg/dl Creatinine 0.93 0.60-1.40 mg/dl Est Creatinine Clear Calc Drug Dose 101.1 ml/min Estimated GFR () 110.6 Estimated GFR (Non- 95.4 BUN/Creatinine Ratio 5.7 10-20 Random Glucose 95 70-99 mg/dl Calcium Level 8.8 8.5-10.1 mg/dl Chemistry Specimen Hemolysis Assessment & Plan Acute complicated diverticulitis- 3.2 cm abscess -vitals signs stable, afebrile, no leukocytosis - +flatus, no bowel movement - no abdominal pain - no nausea or vomiting Plan: Advance diet to low fiber diet Continue IV antibiotics, start oral antibiotics tomorrow Recommend 14 day total course of antibiotics Should follow-up with GI as an outpatient for colonoscopy to evaluate colon given concern for malignancy at ascending colon Follow-up with Dr. Turner in 2 weeks Our services singing off, call with questions or concerns Dr. Turner has seen patient, agrees with above
[2017-07-25 15:02] VITALS: BP 133/81; PULSE 70; TEMP 36.8; O2SAT 98
[2017-07-25 15:30] VITALS: O2SAT 98
[2017-07-25] MEDS ORDERED: RIZATRIPTAN BENZOATE 10 MG TAB PO ONE (17:15)
[2017-07-25 20:45] VITALS: BP 130/80; PULSE 70
[2017-07-25] MEDS: BENAZEPRIL HCL 10 MG TAB PO SCH (20:52)
--- NOTE | 2017-07-25 23:09 | Progress Note ---
Subjective Date of Service: Jul 25, 2017. Subjective Pt evaluation today including: conversation w/ patient 52 yo male reports feeling well. Patient states he would like his diet advanced, but does not like soup. He would like to go directly into a regular diet. Patient denies any fever, chills, nausea, vomiting Problem List Medical Problems: (1) Abscess of sigmoid colon due to diverticulitis Status: Acute (2) Colitis, acute Status: Acute (3) Eye foreign body Status: Acute Review of Systems Constitutional: No fever, No chills, No sweats Eyes: No worsening of vision ENT: No hearing loss, No unusual epistaxis, No nasal symptoms Respiratory: No cough, No sputum, No wheezing Cardiovascular: No chest pain Abdomen: + pain, No nausea Musculoskeletal: No joint pain Genitourinary - Male: No hematuria, No dysuria Neurologic: No memory loss, No paralysis, No weakness Psychiatric: No depression symptoms Endocrine: No fatigue Hematologic / Lymphatic: No abnormal bleeding/bruising Integumentary: No rash Allergic / Immunologic: No environmental allergies All Other Systems: Reviewed and Negative Medications Current Inpatient Medications Medications (Trade) Dose Ordered Sig/Mita Route Start Time Stop Time Status Last Admin Dose Admin Benazepril HCl (Lotensin Tab) 20 mg HS PO 07/24/17 21:00 08/23/17 20:59 07/25/17 20:52 20 MG Piperacillin Sod/ Tazobactam Sod 3.375 gm/Sodium Chloride 115 ml @ 28.75 mls/ hr Q8H IV 07/24/17 02:00 08/03/17 01:59 07/26/17 01:40 28.75 MLS/HR Miscellaneous Information (Consult) 1 ea UD PRN N/A 07/24/17 00:15 08/23/17 00:14 Acetaminophen (Tylenol Tab) 650 mg Q4H PRN PO 07/24/17 00:15 08/23/17 00:14 07/25/17 09:22 650 MG Zolpidem Tartrate (Ambien Tab) 5 mg HSZ PRN PO 07/24/17 00:15 08/23/17 00:14 Ondansetron HCl (Zofran Inj) 4 mg Q6H PRN IV 07/24/17 00:15 08/23/17 00:14 07/24/17 09:49 4 MG Heparin Sodium (Porcine) (Heparin Sq 5000 Unit/0.5ml) 5,000 unit Q12H SQ 07/24/17 09:00 08/23/17 08:59 Objective Vital Signs Date Time Temp Pulse Resp B/P (MAP) Pulse Ox O2 Delivery O2 Flow Rate FiO2 07/25/17 20:45 70 130/80 (97) 07/25/17 15:30 98 Room Air 07/25/17 15:02 36.8 70 18 133/81 (98) 98 Room Air 07/25/17 12:58 37.2 70 20 118/68 (85) 98 Room Air 07/25/17 08:57 36.9 58 20 124/86 (99) 97 Room Air 07/25/17 08:10 Room Air 07/24/17 23:20 36.9 60 16 130/79 (96) 98 Room Air Physical Exam General Appearance: WD/WN, no apparent distress Eyes: normal inspection ENT: normal ENT inspection Neck: supple, no adenopathy Respiratory/Chest: chest non-tender, lungs clear, normal breath sounds Cardiovascular: regular rate, rhythm, no edema Abdomen: normal bowel sounds, non tender, soft Extremities: normal range of motion Neurologic/Psychiatric: alert, oriented x 3 Skin: normal color Lymphatic: no adenopathy Laboratory Results Last 24 Hours Test 07/25/17 09:42 White Blood Count 6.25 K/uL Red Blood Count 4.70 M/uL Hemoglobin 14.6 g/dL Hematocrit 41.5 % Mean Corpuscular Volume 88.3 fL Mean Corpuscular Hemoglobin 31.1 pg Mean Corpuscular Hemoglobin Concent 35.2 g/dl RDW Standard Deviation 37.8 fL RDW Coefficient of Variation 11.6 % Platelet Count 287 K/uL Mean Platelet Volume 8.2 fL Sodium Level 139 mmol/L Potassium Level 4.2 mmol/L Chloride Level 106 mmol/L Carbon Dioxide Level 29 mmol/L Anion Gap 5.0 mmol/L Blood Urea Nitrogen 5 mg/dl Creatinine 0.93 mg/dl Est Creatinine Clear Calc Drug Dose 101.1 ml/min Estimated GFR () 110.6 Estimated GFR (Non- 95.4 BUN/Creatinine Ratio 5.7 Random Glucose 95 mg/dl Calcium Level 8.8 mg/dl Chemistry Specimen Hemolysis Assessment and Plan 52 y/o M Hx HTN, renal calculi. Presents with persistent pain in his LLQ. He has had loose stools without diarrhea, nausea, vomiting or fevers. A CT abdomen is consistent with acute sigmoid diverticulitis with an adjacent 3.2 cm abscess. Incidentally, there is thickening of the ascending colonic wall which is concerning for CA. He denies excessive weight loss, fatigue or night sweats. 1) Diverticulitis with abscess - Provided with Zosyn, surgery consulted. Advanced diet to low fiber. Obtained relocation specialist consult. continue IV antibiotics will switch to PO antibiotics in AM likely cipro and flagyl Recommend 14 day total course of antibiotics Should follow-up with GI as an outpatient for colonoscopy to evaluate colon given concern for malignancy at ascending colon Follow-up with Dr. Turner in 2 weeks 2) HTN - Benzepril restarted, BP at goal 3) R colon mass on CT - incidental. Following resolution of infection, he will need to follow with GI to evaluate for CA. AFP ordered. Should the pt require surgical intervention for diverticulitis, biopsy of mass should be considered prior, as if he requires resection he might be able to avoid 2 surgeries. 4)H/O kidney stones and cavities in teeth Recommend PTH and calcium vitamin d workup as outpatient Full code - Heparin prophylaxis Continued [facility] stay due to: multiple IV medications needed Discharge planning: home
[2017-07-25 23:11] VITALS: BP 115/69; PULSE 65; TEMP 37; O2SAT 97
[2017-07-26] MEDS: PIPERACILL/TAZOBAC IV 3.375 GM in SODIUM CHLORIDE 0.9% 100ML 100 ML IV SCH ×2 (01:40→09:39)
[2017-07-26 07:25] VITALS: O2SAT 98
[2017-07-26 07:50] VITALS: BP 115/69; PULSE 67; TEMP 37; O2SAT 96
[2017-07-26] MEDS: HEPARIN SOD 5000 UNIT/0.5 ML CARP SQ SCH ×2 (08:49→20:24)
[2017-07-26] MEDS ORDERED: CIPROFLOXACIN 500 MG TAB PO STA (11:16)
[2017-07-26] MEDS ORDERED: METRONIDAZOLE 500 MG TAB PO STA (11:16)
[2017-07-26] MEDS: ACETAMINOPHEN 325 MG TAB PO PRN (12:20)
[2017-07-26 15:30] VITALS: O2SAT 96
[2017-07-26 15:32] VITALS: BP 135/86; PULSE 67; TEMP 37; O2SAT 96
--- NOTE | 2017-07-26 15:56 | Progress Note ---
Subjective Date of Service: Jul 26, 2017. Subjective Pt evaluation today including: conversation w/ patient, conversation w/ family , physical exam, chart review, conversation w/ management consultant, review of inpatient medication list Generally continue feeling better, tolerate diet, has bowel movement, no nausea vomiting, no abdominal pain, no spiking fever Problem List Medical Problems: (1) Abscess of sigmoid colon due to diverticulitis Status: Acute (2) Colitis, acute Status: Acute (3) Eye foreign body Status: Acute Review of Systems Constitutional: No fever, No chills, No sweats, No weight loss, No weakness, No fatigue, No problem reported Eyes: No worsening of vision, No eye pain, No redness, No discharge, No diplopia ENT: No hearing loss, No unusual epistaxis, No nasal symptoms, No sore throat, No tinnitus, No dental problems, No trouble swallowing Respiratory: No cough, No sputum, No wheezing, No shortness of breath, No dyspnea on exertion, No dyspnea at rest, No hemoptysis Cardiac: No chest pain, No orthopnea, No PND, No edema, No claudication, No palpitations Abdomen: + problem reported (Report uncomfortable when have bowel movement), No pain, No nausea, No vomiting, No diarrhea, No constipation Musculoskeletal: No joint pain, No muscle pain, No swelling, No calf pain Male : No dysuria, No urinary frequency, No incontinence, No nocturia more than once/night, No slowing stream, No hematuria Neurologic: No memory loss, No paralysis, No weakness, No numbness/tingling, No vertigo, No balance problems Psychiatric: No depression symptoms, No anhedonism, No anxiety, No insomnia, No substance abuse Heme: No abnormal bleeding/bruising, No clotting problems, No swollen lymph nodes, No night sweats Endo: No fatigue, No excessive thirst, No excessive urination Skin: No rash, No itch, No new/changing skin lesions, No color change, No bleeding Objective Vital Signs Date Time Temp Pulse Resp B/P (MAP) Pulse Ox O2 Delivery O2 Flow Rate FiO2 07/26/17 15:32 37.0 67 16 135/86 (102) 96 Room Air 07/26/17 07:50 37.0 67 16 115/69 (84) 96 Room Air 07/26/17 07:25 98 Room Air 07/25/17 23:30 Room Air 07/25/17 23:11 37.0 65 16 115/69 (84) 97 Room Air 07/25/17 20:45 70 130/80 (97) Physical Exam General Appearance: WD/WN, no apparent distress Eyes: normal inspection, PERRL, EOMI, sclerae normal ENT: normal ENT inspection, hearing grossly normal, pharynx normal Neck: supple, no adenopathy, thyroid normal, no JVD, no carotid bruits, trachea midline Respiratory/Chest: chest non-tender, lungs clear, normal breath sounds, no respiratory distress, no accessory muscle use Cardiovascular: regular rate, rhythm, no edema, no gallop, no JVD, no murmur Abdomen: normal bowel sounds, non tender, soft, no organomegaly, no pulsatile mass Extremities: normal range of motion, non-tender, normal inspection, no pedal edema, no calf tenderness, normal capillary refill, pelvis stable Neurologic/Psychiatric: vp of customer experience strategy II-XII nml as tested, no motor/sensory deficits, alert, normal mood/affect, oriented x 3 Skin: normal color, warm/dry, no rash Lymphatic: no adenopathy Assessment and Plan 52 y/o M admitted because of diverticulitis with abscess associated with persistent pain in his LLQ. Per report he has had loose stools without diarrhea, nausea, vomiting or fevers. A CT abdomen is consistent with acute sigmoid diverticulitis with an adjacent 3.2 cm abscess. Past medical Hx HTN, renal calculi Diverticulitis with abscess Has been on Zosyn, surgery consulted, not recommend off drainage, Surgeon to start oral antibiotic today for total 14 day Should follow-up with GI as an outpatient for colonoscopy to evaluate colon given concern for malignancy at ascending colon Suit follow-up with surgeon Dr. Turner in 2 weeks Continue no fiber Continue Cipro and flagyl HTN, H/O kidney stones and cavities in teeth , Recommend PTH and calcium vitamin d workup as outpatient, but I have ordered these labs, will need to follow-up with PCP Full code - Heparin prophylaxis Continued [facility] stay due to: home environment unsafe for pt Discharge planning: home
[2017-07-26 20:41] VITALS: BP 155/96; PULSE 76
[2017-07-26] MEDS: BENAZEPRIL HCL 10 MG TAB PO SCH (20:43)
[2017-07-26] MEDS: CIPROFLOXACIN 500 MG TAB PO SCH (20:43)
[2017-07-26] MEDS: METRONIDAZOLE 500 MG TAB PO SCH (20:44)
[2017-07-26 23:41] VITALS: BP 155/95; PULSE 73; TEMP 36.5; O2SAT 98
[2017-07-27 06:43] LABS: HEMATOCRIT 39.3 % (42-52); HEMOGLOBIN 13.9 g/dL (14.0-18.0); MEAN CELL VOLUME 86.9 fL (80-100); MEAN CORPUSCULAR HEMOGLOBIN 30.8 pg (25-34); MEAN CORPUSCULAR HGB CONC 35.4 g/dl (32-36); PLATELET COUNT 284 K/uL (130-400); RED CELL DISTRIBUTION WIDTH CV 11.5 % (11.5-14.5); RED CELL DISTRIBUTION WIDTH SD 36.6 fL (36.4-46.3); WHITE BLOOD COUNT 7.48 K/uL (4.8-10.8)
[2017-07-27 07:38] VITALS: BP 137/85; PULSE 58; TEMP 36.6; O2SAT 97
[2017-07-27] MEDS: HEPARIN SOD 5000 UNIT/0.5 ML CARP SQ SCH (08:48)
[2017-07-27] MEDS: METRONIDAZOLE 500 MG TAB PO SCH (08:50)
[2017-07-27] MEDS: CIPROFLOXACIN 500 MG TAB PO SCH (08:50)
[2017-07-27] MEDS ORDERED: CALCIUM 600MG + VIT D 400 IU TAB PO SCH (09:00)
[2017-07-27] MEDS ORDERED: CALCTAB7 PO (09:37)
[2017-07-27] MEDS ORDERED: MTR500 PO ×2 (09:37→09:43)
[2017-07-27] MEDS ORDERED: CPR500 PO ×2 (09:37→09:42)
--- NOTE | 2017-07-27 09:40 | Discharge Instructions ---
Discharge Instructions Date of Service Jul 27, 2017. Admission Reason for Admission: Abscess Of Sigmoid Colon Due To Diverticulitis Discharge Discharge Diagnosis / Problem: diverticulitis with abscess Discharge Goals Goal(s): Decrease discomfort, Improve function, Increase independence, Improve disease control, Improve nutritional status, Learn about illness, Diagnostic testing, Therapeutic intervention, Prevent Disease Progression, Specific goals Activity Recommendations Activity Limitations: resume your previous activity Lifting Limitations: none Exercise/Sports Limitations: none May Resume Sexual Activity: when tolerated Shower/Bathe: no limitations Driving or Machine Use: no limitations . Instructions / Follow-Up Instructions / Follow-Up you have Diverticulitis with abscess need to continue oral antibiotic today for total 14 day you need to follow-up with GI as an outpatient for colonoscopy you need to follow-up with surgeon Dr. Turner in 2 weeks Continue low fiber - you need to follow up with your primary care physician in 1 week, - take medication as instructed, never overdose or any misuse, or take with alcohol, because misuse of medicine may cause organ damage or , call your primary care physician if have questions of medicaitons. - call your primary care physician OR go to local emergency room if has any fever/chill, chest pain, shortness of breathing, nausea/vomiting/abdominal pain , facial droop/slurry speech/local weakness, or if has any questions. - fall precaution - diet as instructed - you need to follow up with your subspecialists - you should understand that it is important to follow up the above instruction , and "not following the above instruction" may cause delayed or missed care of your medical conditions which may cause permanent organ damage and even . Current Hospital Diet Patient's current hospital diet: Low Fiber Diet Discharge Diet Recommended Diet: Low Fiber Diet, N/A Pending Studies Studies pending at discharge: no Medical Emergencies . Who to Call and When: Medical Emergencies: If at any time you feel your situation is an emergency, please call 911 immediately. . Non-Emergent Contact Non-Emergency issues call your: Primary Care Provider, Journeyman Pipe Fitter, Surgeon . . "Provider Documentation" section prepared by Marito Francisco. .
[2017-07-27 10:13] VITALS: BP 137/85; PULSE 58; TEMP 36.6; O2SAT 97
--- NOTE | 2017-07-27 14:48 | Discharge Summary ---
Discharge Summary Date of Service Jul 27, 2017. Discharge Summary Admission Date: Jul 24, 2017 at 00:09 Discharge Date: Jul 27, 2017 Principal Diagnosis: Diverticulitis with abscess Procedures: No Consultations: GI and surgeon Medication Reconciliation New Medications: Calcium Carbonate-Vitamin D W/ (Caltrate 600 Plus) 1 Tab Tab 1 TAB PO BID for 30 Days, #60 TAB Ciprofloxacin (Ciprofloxacin HCl) 500 Mg Tab 500 MG PO BID for 9 Days, #18 TAB please discard the Rx sent moment ago Metronidazole (Metronidazole) 500 Mg Tab 500 MG PO TID for 9 Days, #27 TAB please discard the Rx sent moment ago Continued Medications: Benazepril (Lotensin) 20 Mg Tab 20 MG PO HS, TAB Discharge Exam Doing okay, tolerate diet, no complaint, Review of Systems: Constitutional: No fever, No chills, No sweats, No weight loss, No weakness , No fatigue, No problem reported Eyes: No worsening of vision, No eye pain, No redness, No discharge, No diplopia, No problem reported ENT: No hearing loss, No unusual epistaxis, No nasal symptoms, No sore throat, No tinnitus, No dental problems, No trouble swallowing, No problem reported Respiratory: No cough, No sputum, No wheezing, No shortness of breath, No dyspnea on exertion, No dyspnea at rest, No hemoptysis, No problem reported Cardiovascular: No chest pain, No orthopnea, No PND, No edema, No claudication, No palpitations, No problem reported Abdomen: No pain, No nausea, No vomiting, No diarrhea, No constipation, No GI bleeding, No problem reported Musculoskeletal: No joint pain, No muscle pain, No swelling, No calf pain, No problem reported Genitourinary - Male: No hematuria, No dysuria, No urinary frequency, No urinary urgency, No urinary hesitancy, No urinary retention, No urinary incontinence, No penile discharge, No lesions, No impotence, No problem reported Neurologic: No memory loss, No paralysis, No weakness, No numbness/tingling , No vertigo, No balance problems, No problem reported Psychiatric: No depression symptoms, No anhedonism, No anxiety, No insomnia , No substance abuse, No problem reported Integumentary: No rash, No itch, No new/changing skin lesions, No color change, No bleeding, No problem reported Physical Exam: General Appearance: WD/WN Eyes: normal inspection ENT: normal ENT inspection Neck: supple, no adenopathy, thyroid normal Respiratory/Chest: chest non-tender, lungs clear, normal breath sounds Cardiovascular: regular rate, rhythm, no edema, no gallop Abdomen / GI: normal bowel sounds, non tender, soft Extremities: normal inspection, no calf tenderness, normal capillary refill Neurologic/Psychiatric: track oiler II-XII nml as tested, no motor/sensory deficits , alert Skin: normal color, warm/dry Hospital Course 52 y/o M admitted because of diverticulitis with abscess associated with persistent pain in his LLQ. Per report he has had loose stools without diarrhea, nausea, vomiting or fevers. A CT abdomen is consistent with acute sigmoid diverticulitis with an adjacent 3.2 cm abscess. Past medical Hx HTN, renal calculi Diverticulitis with abscess, stable improving Has been on Zosyn, surgery consulted, not recommend off drainage surgery, Surgeon to start oral antibiotic for total 14 day Should follow-up with GI as an outpatient for colonoscopy to evaluate colon given concern for malignancy at ascending colon Suit follow-up with surgeon Dr. Turner in 2 weeks Continue low fiber Continue Cipro and flagyl Vitamin D deficiency, HTN, H/O kidney stones and cavities in teeth , Recommend PTH and calcium vitamin d workup as outpatient, but I have ordered these labs, will need to follow-up with PCP Full code - Heparin prophylaxis Instructions / Follow-Up you have Diverticulitis with abscess need to continue oral antibiotic today for total 14 day you need to follow-up with GI as an outpatient for colonoscopy you need to follow-up with surgeon Dr. Turner in 2 weeks Continue low fiber - you need to follow up with your primary care physician in 1 week, - take medication as instructed, never overdose or any misuse, or take with alcohol, because misuse of medicine may cause organ damage or , call your primary care physician if have questions of medicaitons. - call your primary care physician OR go to local emergency room if has any fever/chill, chest pain, shortness of breathing, nausea/vomiting/abdominal pain , facial droop/slurry speech/local weakness, or if has any questions. - fall precaution - diet as instructed - you need to follow up with your subspecialists - you should understand that it is important to follow up the above instruction , and "not following the above instruction" may cause delayed or missed care of your medical conditions which may cause permanent organ damage and even . Total Time Spent: Less than 30 minutes This includes examination of the patient, discharge planning, medication reconciliation, and communication with other providers. Discharge Instructions Please refer to the electronic Patient Visit Report (Discharge Instructions) for additional information. Additional Copies To Kunal Skelton MD; Jamey Turner MD
== END 2017-07-27 11:32 | disposition home or self-care (01) | DRG 392 ==
LOC: C.EDB 19:26 → C.MSW 07-24 00:09 → ENRESERV 07-24 00:50
PROVIDERS: ADMIT Internal Medicine; ATTEND Hospitalist
DX: K57.20 Diverticulitis of large intestine with perforation and abscess without bleeding (principal); R93.3 Abnormal findings on diagnostic imaging of other parts of digestive tract; I10 Essential (primary) hypertension; E55.9 Vitamin D deficiency, unspecified; Z79.899 Other long term (current) drug therapy; Z88.8 Allergy status to other drugs, medicaments and biological substances; Z80.0 Family history of malignant neoplasm of digestive organs

== ENCOUNTER → 2017-07-23 | Outpatient (CLI) | payer OTHER ==
[~2017-07-23] MED LIST changes: +OPTIRAY 320 IV PRN
[2017-07-23 16:06] LABS: BLOOD UREA NITROGEN 11 mg/dl (7-18); CALCIUM 8.9 mg/dl (8.5-10.1); CARBON DIOXIDE 28 mmol/L (21-32); GLUCOSE 67 mg/dl (70-99); POTASSIUM 3.5 mmol/L (3.5-5.1); SODIUM 137 mmol/L (136-145)
[2017-07-23 16:31] LABS: BASO % 0.2 %; BASO ABS # 0.03 K/uL (0-0.2); EOS % 0.4 %; EOS ABS # 0.07 K/uL (0-0.5); HEMATOCRIT 41.7 % (42-52); HEMOGLOBIN 14.6 g/dL (14.0-18.0); IG# 0.05 K/uL (0.00-0.02); LYMPH ABS # 1.59 K/uL (1.2-3.4); MEAN CELL VOLUME 89.1 fL (80-100); MEAN CORPUSCULAR HEMOGLOBIN 31.2 pg (25-34); MEAN PLATELET VOLUME 8.3 fL (7.4-10.4); MONO % 10.6 %; MONO ABS # 1.68 K/uL (0.11-0.59); NEUT % 78.5 %; NEUT ABS # 12.43 K/uL (1.4-6.5); PLATELET COUNT 294 K/uL (130-400); RED CELL DISTRIBUTION WIDTH CV 11.9 % (11.5-14.5); RED CELL DISTRIBUTION WIDTH SD 38.4 fL (36.4-46.3); WHITE BLOOD COUNT 15.85 K/uL (4.8-10.8)
--- NOTE | 2017-07-23 16:56 | DIAGNOSTIC IMAGING REPORT ---
ABD/PELVIS IV CONTRAST ONLY CLINICAL HISTORY: 52 years-old Male presenting with R10.32 Left lower quadrant abdominal pain of unknown etiology. TECHNIQUE: Multidetector CT of the abdomen and pelvis was performed after the administration of intravenous contrast. IV contrast: 120 mL of Optiray 320. A dose lowering technique was used consistent with the principles of ALARA (as low as reasonably achievable). COMPARISON: 05/26/2014. CT DOSE (mGy.cm): The estimated cumulative dose is 599.01 mGycm. FINDINGS: [employer] topogram: Unremarkable. Lung bases: Minimal basilar opacities, likely atelectasis. Normal heart size. Small pericardial effusion. No pleural effusion. Liver: Normal morphology. Well-defined hypodensity in the left hepatic lobe likely hepatic cyst or hamartoma. Patent hepatic vasculature. Biliary: No intrahepatic or extrahepatic biliary ductal dilatation. Normal gallbladder. Pancreas: Normal. Spleen: Normal. Adrenal glands: Normal. Kidneys and ureters: Bilateral punctate nonobstructing nephrolithiasis. Normal renal parenchyma. Bilateral extrarenal pelvises. No hydronephrosis. Prominent parapelvic cysts suggested in the interpolar region of the left kidney. Ureters normal. Bladder: Normal. Pelvic organs: Prostate enlargement likely secondary to benign prostatic hyperplasia. Bowel: Wall thickening of the rectum. Diverticulosis of the sigmoid colon with extensive wall thickening of the mid sigmoid colon. Extraluminal foci of gas within a rim-enhancing fluid collection within the sigmoid colon mesentery consistent with abscess. This is situated along the left superior lateral aspect of the bladder dome though a fat plane between this collection and the bladder is preserved. Multiple loops of small bowel approach this collection though appear grossly uninvolved besides slight kinking, suggesting developing adhesions in this region. Prominence of the vasa recta. Moderate stool burden in the transverse colon. Extensive focal wall thickening of the ascending colon to the level of the hepatic flexure with associated prominence of the vasa recta and multiple small mesenteric lymph nodes. The appendix is normal. No bowel obstruction. Peritoneal cavity: No free intraperitoneal gas. Loculated collection adjacent to the sigmoid colon containing gas and fluid consistent with abscess. This collection measures 3.2 cm in maximal dimension. No free intraperitoneal fluid. No peritoneal nodularity. No significant peritoneal fascial thickening or enhancement. Lymph nodes: No pathologically enlarged lymph nodes in the abdomen or pelvis. Prominent mesenteric lymph nodes associated with the ascending colon and hepatic flexure as mentioned above. Vasculature: Aorta and IVC patent and normal in caliber. Abdominal wall: Normal. Musculoskeletal: Heterogeneity of the medullary cavity with trabecular thickening evident at the right pubic bone, unchanged, possibly Paget's disease or other benign etiology. IMPRESSION: 1. Findings consistent with acute complicated sigmoid diverticulitis with an adjacent 3.2 cm abscess. No free intraperitoneal gas though the abscess contains gas and fluid. 2. Highly suspicious wall thickening of the ascending colon to the level of the hepatic flexure. This is concerning for carcinoma of the colon. Gastroenterology consultation for colonoscopy recommended. 3. Bilateral nonobstructing nephrolithiasis. The report will be called/faxed according to standard departmental protocol. Electronically signed by: Bolivar Reese M.D. 07/23/2017 4:55 PM Dictated Date/Time: 07/23/2017 4:46 PM
== END | disposition home or self-care (01) ==
LOC: C.CTS 15:05
PROVIDERS: ATTEND Nurse Practitioner
DX: R10.32 Left lower quadrant pain (principal); N20.0 Calculus of kidney

== ENCOUNTER 2020-05-20 17:20 | Observation (INO) ==
[2020-05-20] MEDS ORDERED: PIPERACILLIN/TAZOBACTAM 4.5 GM/120 ML BAG IV ONE (17:28)
[2020-05-20] MEDS: SODIUM CHLORIDE 0.9% 1000ML 1,000 ML IV SCH (17:54)
[2020-05-20 17:56] LABS: Basophils # (auto) 0.03 K/uL (0-0.2); Basophils % (auto) 0.3 %; Eosinophils # (auto) 0.04 K/uL (0-0.5); Eosinophils % (auto) 0.4 %; Hematocrit (blood only) 48.1 % (42-52); Hemoglobin 17.3 g/dL (14.0-18.0); Immature Granulocytes # (auto) 0.02 K/uL (0.00-0.02); Immature Granulocytes % (auto) 0.2 %; Lymphocytes # (auto) 1.39 K/uL (1.2-3.4); Lymphocytes % (auto) 12.6 %; Mean Corpuscular Volume 89.1 fL (80-100); Mean Platelet Volume 8.1 fL (7.4-10.4); Monocytes # (auto) 0.85 K/uL (0.11-0.59); Monocytes % (auto) 7.7 %; Neutrophils # (auto) 8.68 K/uL (1.4-6.5); Neutrophils % (auto) 78.8 %; Platelet Count 261 K/uL (130-400); RDW Coefficient of Variation 11.7 % (11.5-14.5); RDW Standard Deviation 37.8 fL (36.4-46.3); White Blood Count 11.01 K/uL (4.8-10.8)
--- NOTE | 2020-05-20 18:10 | Emergency Department Note ---
History of Present Illness General Chief Complaint: Abdominal Pain Stated Complaint: DIVERTICULITIS,ABCESS,HERE FOR CT AND SENT BACK Time Seen by Provider: 05/20/20 17:28 History of Present Illness Provider Complaint: abdominal pain Onset (ago): 3 day(s) Pain Consistency: intermittent Location: LLQ Radiation: none Severity: moderate Maximum Pain Intensity: 7 Current Pain Intensity: 7 Quality: + aching Relieved By: + nothing Exacerbated By: + nothing Context: + history of similar episodes (History diverticulitis); no foreign travel, no possible food poisoning, no sick contacts, no recent antibiotic use and no recent surgery/procedure Associated Symptoms: no nausea, no vomiting, no diarrhea, no fever, no chills, no constipation, no dysuria, no hematemesis, no hematochezia, no melena, no hematuria, no anorexia, no syncope, no headache, no neck pain, no back pain, no chest pain, no weakness and no numbness Home Medications Medication Instructions Recorded Confirmed Type hydrocortisone 2.5 % topical cream 1 applic UT BID PRN #30 g 01/30/20 05/20/20 Rx with perineal applicator rizatriptan 5 mg tablet See Rx Instructions PO .COMPLEX 01/30/20 05/20/20 Rx #12 tab sildenafil (pulm.hypertension) 20 20 mg PO .COMPLEX #50 tab 04/21/20 05/20/20 Rx mg tablet benazepril 20 mg tablet 20 mg PO DAILY #90 tab 04/22/20 05/20/20 Rx hydrochlorothiazide 25 mg tablet 25 mg PO DAILY #90 tab 04/22/20 05/20/20 Rx ciprofloxacin HCl 500 mg tablet 500 mg PO BID 10 Days #20 tab 05/19/20 05/20/20 Rx metronidazole 500 mg tablet 500 mg PO TID 10 Days #30 tab 05/19/20 05/20/20 Rx turmeric 0 mg PO DAILY 05/20/20 05/20/20 History Allergies Allergy/AdvReac Type Severity Reaction Status Date / Time hydrocodone Allergy Mild pruiritis Verified 05/20/20 08:33 Sulfa (Sulfonamide Allergy Mild Itching Verified 05/20/20 08:33 Antibiotics) sulfamethoxazole Allergy Verified 05/20/20 08:33 Past Med/Surg History Medical History (Updated 05/20/20 @ 19:14 by Joe Jaquez) Acquired deviated nasal septum External hemorrhoid Hypercholesterolemia Hypertension Left lower quadrant abdominal pain of unknown etiology Nephrolithiasis Oral soft tissue disease Surgical History History of hand surgery History of vasectomy Family History Father Prostate cancer Kidney stone Mother Hypertension Brother Hypertension Social History Smoking Status: Never smoker Hx Alcohol Use: Yes Hx Substance Use: No Preferred Language: Croatian marital status: current occupational status: employed Feels Safe at Home: Yes caffeine: Yes Review of Systems A total of 10 systems reviewed and were otherwise negative Physical Exam Vital Signs: Vital Signs - 24 hr 05/20/20 17:25 05/20/20 17:48 05/20/20 17:51 Temperature 36.2 C L Temperature Source Temporal Artery Sc an Pulse Rate 101 H 93 H Pulse Rate [Apical ] 91 H Pulse Rate from Sp O2 Sensor 92 H Respiratory Rate 18 21 20 Respiratory Effort / Characteristics Non-Labored Sponta neous Non-Labored Sponta neous Respiratory Depth Normal Normal Respiratory Patter n Regular Regular Blood Pressure 135/87 130/82 Blood Pressure [Ri ght Arm] 130/82 Blood Pressure Magi n 103 98 Blood Pressure Magi n [Right Arm] 98 Blood Pressure Pos ition Sitting Pulse Oximetry 98 96 96 Oxygen Delivery Me thod Room Air Room Air Sepsis Recent Feve r Within 48 Hours No Sepsis New/Unexpla ined Change in Men trino Status N/A Sepsis Action Take n by Nursing No Action Required 05/20/20 17:54 05/20/20 18:00 05/20/20 18:01 Temperature Temperature Source Pulse Rate 90 88 90 Pulse Rate [Apical ] Pulse Rate from Sp O2 Sensor 89 89 89 Respiratory Rate 23 17 22 Respiratory Effort / Characteristics Respiratory Depth Respiratory Patter n Blood Pressure 119/84 Blood Pressure [Ri ght Arm] Blood Pressure Magi n 95 Blood Pressure Magi n [Right Arm] Blood Pressure Pos ition Pulse Oximetry 96 95 96 Oxygen Delivery Me thod Sepsis Recent Feve r Within 48 Hours Sepsis New/Unexpla ined Change in Men trino Status Sepsis Action Take n by Nursing 05/20/20 18:30 05/20/20 19:00 Temperature Temperature Source Pulse Rate 90 84 Pulse Rate [Apical ] Pulse Rate from Sp O2 Sensor 91 H 85 Respiratory Rate 14 20 Respiratory Effort / Characteristics Respiratory Depth Respiratory Patter n Blood Pressure 120/83 121/81 Blood Pressure [Ri ght Arm] Blood Pressure Magi n 95 94 Blood Pressure Magi n [Right Arm] Blood Pressure Pos ition Pulse Oximetry 97 97 Oxygen Delivery Me thod Room Air Sepsis Recent Feve r Within 48 Hours Sepsis New/Unexpla ined Change in Men trino Status Sepsis Action Take n by Nursing Physical Exam: Physical Exam GENERAL: He is oriented to person, place, and time. He appears well-developed and well-nourished. He does not appear distressed. HENT: Exam performed. - Head: Normocephalic and atraumatic. - Right Ear: External ear normal. No mastoid tenderness. - Left Ear: External ear normal. No mastoid tenderness. - Mouth/Throat: The oropharynx is clear and moist. No trismus in the jaw. No dental abscesses or uvula swelling. No oropharyngeal exudate or tonsillar abscesses. EYES: Conjunctivae and EOM are normal. Pupils are equal, round, and reactive to light. Right eye exhibits no discharge. Left eye exhibits no discharge. No scleral icterus. NECK: Normal range of motion. Neck supple. No JVD present. No spinous process tenderness present. No carotid bruit present. No rigidity. No tracheal deviation and normal range of motion present. No Brudzinski's sign and no Kernig's sign noted. CV: Normal rate, regular rhythm, normal heart sounds and intact distal pulses. There is no peripheral edema. Palpable radial pulses bue. PULM/CHEST: Effort normal and breath sounds normal. No respiratory distress. No stridor. He has no wheezes. He has no rales. - Chest Wall: He exhibits no tenderness. ABD: The abdomen is soft. Bowel sounds are normal. He has no distension. No mass is present. There is no tenderness. There is no rebound, no guarding, no Skinner's sign and no tenderness at McBurney's point. Rovsig negative. MUSC/SKEL: Normal range of motion. There is no peripheral edema, tenderness or deformity. LYMPH: No cervical adenopathy. NEURO: He is alert and oriented to person, place, and time. He has normal strength. No cranial nerve deficit or sensory deficit. Coordination and gait normal. GCS eye subscore is 4. GCS verbal subscore is 5. GCS motor subscore is 6. Cerebellar tests wnl. SKIN: Skin is warm and dry. He is not diaphoretic. PSYCH: He has a normal mood and affect. Behavior is normal. Judgment and thought content normal. Course Course 172: The patient was evaluated in room A12. A complete history and physical exam was performed. Administered Medications Sodium Chloride (Nss 1000ml) 1,000 mls @ 80 mls/hr IV .[id number] SATHISH Stop: 06/19/20 17:29 Last Admin: 05/20/20 17:54 Dose: 80 mls/hr Documented by: [id number] Discontinued Medications Piperacillin Sod/Tazobactam Sod (Zosyn) 4.5 gm in 120 mls @ 240 mls/hr IV NOW ONE Stop: 05/20/20 17:57 Last Infusion: 05/20/20 18:27 Dose: 0 mls/hr Documented by: [id number] Admin: 05/20/20 17:55 Dose: 240 mls/hr Documented by: [id number] Medical Decision Making Laboratory Data Result diagrams: 05/20/20 17:47 05/20/20 17:47 Lab Results 05/20/20 05/20/20 05/20/20 Range/Units 17:47 17:47 18:30 WBC 11.01 H (4.8-10.8) K/uL RBC 5.40 (4.7-6.1) M/uL Hgb 17.3 (14.0-18.0) g/dL Hct 48.1 (42-52) % MCV 89.1 (80-100) fL MCH 32.0 (25-34) pg MCHC 36.0 (32-36) g/dL RDW Std Deviation 37.8 (36.4-46.3) fL RDW Coeff of Nick 11.7 (11.5-14.5) % Plt Count 261 (130-400) K/uL MPV 8.1 (7.4-10.4) fL Immature Gran % (Auto) 0.2 % Neut % (Auto) 78.8 % Lymph % (Auto) 12.6 % Orange % (Auto) 7.7 % Eos % (Auto) 0.4 % Baso % (Auto) 0.3 % Neut # (Auto) 8.68 H (1.4-6.5) K/uL Lymph # (Auto) 1.39 (1.2-3.4) K/uL Orange # (Auto) 0.85 H (0.11-0.59) K/uL Eos # (Auto) 0.04 (0-0.5) K/uL Baso # (Auto) 0.03 (0-0.2) K/uL Immature Gran # (Auto) 0.02 (0.00-0.02) K/uL Sodium 134 L (136-145) mmol/L Potassium 3.8 (3.5-5.1) mmol/L Chloride 97 L (98-107) mmol/L Carbon Dioxide 31 (21-32) mmol/L Anion Gap 6.0 (3-11) BUN 21 H (7-18) mg/dl Creatinine 1.24 (0.6-1.4) mg/dl Est Cr Clr Drug Dosing 71.1 ml/min Est GFR ( Amer) 76.4 Est GFR (Non-Af Amer) 66.0 BUN/Creatinine Ratio 17.2 (10-20) Glucose 117 H (70-99) mg/dl Calcium 9.9 (8.5-10.1) mg/dl COVID-19 Eval Order Covid19 IDNow atMWIC SARS-CoV-2, RNA, NAAT (NEGATIVE) 05/20/20 Range/Units 18:30 WBC (4.8-10.8) K/uL RBC (4.7-6.1) M/uL Hgb (14.0-18.0) g/dL Hct (42-52) % MCV (80-100) fL MCH (25-34) pg MCHC (32-36) g/dL RDW Std Deviation (36.4-46.3) fL RDW Coeff of Nick (11.5-14.5) % Plt Count (130-400) K/uL MPV (7.4-10.4) fL Immature Gran % (Auto) % Neut % (Auto) % Lymph % (Auto) % Orange % (Auto) % Eos % (Auto) % Baso % (Auto) % Neut # (Auto) (1.4-6.5) K/uL Lymph # (Auto) (1.2-3.4) K/uL Orange # (Auto) (0.11-0.59) K/uL Eos # (Auto) (0-0.5) K/uL Baso # (Auto) (0-0.2) K/uL Immature Gran # (Auto) (0.00-0.02) K/uL Sodium (136-145) mmol/L Potassium (3.5-5.1) mmol/L Chloride (98-107) mmol/L Carbon Dioxide (21-32) mmol/L Anion Gap (3-11) BUN (7-18) mg/dl Creatinine (0.6-1.4) mg/dl Est Cr Clr Drug Dosing ml/min Est GFR ( Amer) Est GFR (Non-Af Amer) BUN/Creatinine Ratio (10-20) Glucose (70-99) mg/dl Calcium (8.5-10.1) mg/dl COVID-19 Eval Order SARS-CoV-2, RNA, NAAT NEGATIVE (NEGATIVE) Imaging Data Radiologist's Impression: CT OF THE ABDOMEN AND PELVIS WITH CONTRAST CLINICAL HISTORY: R10.32 - Left lower quadrant pain. COMPARISON STUDY: CT of the abdomen and pelvis July 23, 2017. TECHNIQUE: Following IV administration of 94 mL of Optiray-320, axial images of the abdomen and pelvis were obtained from the lung bases to the proximal femurs. Images were reviewed in the axial, sagittal, and coronal planes. IV contrast was administered without complication. Automated exposure control was utilized for the study. A dose lowering technique was utilized adhering to the principles of ALARA. Oral contrast was administered. CT DOSE: 339.57 mGy.cm FINDINGS: Lung bases are unremarkable. No pneumatosis, free air or portal venous gas is present. A lateral segment hepatic cyst is unchanged. The spleen, adrenal glands and pancreas are unremarkable. There is no biliary or pancreatic ductal dilatation. Note is made of a 4 mm left renal calculus. There are no ureteral calculi. There is no hydronephrosis. The appendix is normal. Note is made of diverticulosis of the descending colon and sigmoid colon. There is an inflamed diverticulum of the proximal sigmoid colon with an associated 1.4 cm fluid and gas containing collection immediately adjacent to the sigmoid colon. This represents a small abscess. There is mild adjacent inflammation and colonic wall thickening. No additional sites of bowel wall thickening are noted. Major vasculature is patent. There is no lymphadenopathy. IMPRESSION: 1. Acute sigmoid diverticulitis with an associated small 1.4 cm diverticular abscess. If not recently performed, a nonemergent colonoscopy is recommended to exclude the unlikely possibility of an underlying lesion. 2. 4 mm left renal calculus. ACT 112: Positive. There are findings on this exam that require communication between the performing entity and the patient following Patient Test Result Information Act ([place] Act 112) guidelines. Electronically signed by: Jacinto Atkinson M.D. 05/20/2020 3:10 PM Dictated: 05/20/20 1455Transcribed: 05/20/20 1504 MDM Narrative The patient was evaluated in room A12. A complete history and physical exam was performed. She had an outpatient CT scan which showed diverticulitis with a small abscess. Spoke with general surgery on-call Dr. Carbone. He states that this abscess is too small to be drained and should be treated with IV antibiotics. Both he and I agree that the patient can remain at the [facility] service. He agrees to be on consult. Zosyn ordered in the emergency department. Discussed case with Dr. Lares who agrees to evaluate the patient. Impression & Plan Colonic diverticular abscess Discharge Plan Visit Data Chief Complaint: Abdominal Pain Stated Complaint: DIVERTICULITIS,ABCESS,HERE FOR CT AND SENT BACK ED Provider: Joe Jaquez Discharge Problem: Colonic diverticular abscess Patient Disposition: Being Evaluated by Hospitalist Forms Stand Alone Forms: My [facility] Prescriptions Prescriptions: No Action benazepril 20 mg tablet 20 mg PO DAILY Qty: 90 RF: 3 hydrochlorothiazide 25 mg tablet 25 mg PO DAILY Qty: 90 RF: 3 rizatriptan 5 mg tablet See Rx Instructions PO .COMPLEX Qty: 12 RF: 3 hydrocortisone [Anusol-HC] 2.5 % cream with perineal applicator 1 applic UT BID PRN (Reason: hemorrhoids) Qty: 30 RF: 2 ciprofloxacin HCl 500 mg tablet 500 mg PO BID 10 Days Qty: 20 RF: 0 metronidazole 500 mg tablet 500 mg PO TID 10 Days Qty: 30 RF: 0 sildenafil (pulm.hypertension) 20 mg tablet 20 mg PO .COMPLEX Qty: 50 RF: 5 turmeric 400 mg Capsule 0 mg PO DAILY RF: 0 Referrals Referrals: Cuba Washington III, MD [Primary Care Provider] -
[2020-05-20 18:14] LABS: BUN Creatinine Ratio 17.2 (10-20); Calcium 9.9 mg/dl (8.5-10.1); Creatinine Clr Calc Pharmacy 71.1 ml/min; Est GFR (African American) 76.4; Potassium 3.8 mmol/L (3.5-5.1)
--- NOTE | 2020-05-20 20:44 | History & Physical Report ---
Date of Service May 20, 2020 Assessment & Plan (1) Colonic diverticular abscess: NPO Zosyn 3.375mg IV Q8H Consult surgery Prior colonoscopy after last abscess 3 years ago, no need to repeat this. (2) Diverticulitis: (3) Hypertension: Switch benazepril for enalapril per hospital formulary Will hold hydrochlorothiazide during acute illness Admission and Anticipated Discharge Date Admission Date: May 20, 2020 History of Present Illness Chief Complaint: Acute diverticulitis Primary Care Provider: Cuba Washington MD James Vergara is a 55-year-old male who presents to the ER with abdominal pain. He has a significant episode of diverticulitis 3 years ago with follow-up colonoscopy reportedly normal other than a benign polyp. He reports left lower quadrant abdominal pain starting 5 days ago. Initially he felt it may be muscular but it became persistent. He had a telehealth appointment yesterday and given his history was started on ciprofloxacin and metronidazole which he started last night. On follow-up today a CT scan was arranged which showed a 1.4 cm abscess therefore he was advised to come to the ER for further treatment. He denies any fevers or chills. Reports his abdominal pain is similar to yesterday. No change in his bowel habit. In the ER he was given Zosyn 4.5 g IV. He was referred to medicine for admission and ongoing management of acute diverticulitis with abscess. I dis cussed his care with Chapo Wright PA-C surgery on admission. Allergies Allergy/AdvReac Type Severity Reaction Status Date / Time hydrocodone Allergy Mild pruiritis Verified 05/20/20 08:33 Sulfa (Sulfonamide Allergy Mild Itching Verified 05/20/20 08:33 Antibiotics) sulfamethoxazole Allergy Verified 05/20/20 08:33 Home Medications Medication Instructions Recorded Confirmed Type hydrocortisone 2.5 % topical cream 1 applic IN BID PRN #30 g 01/30/20 05/20/20 Rx with perineal applicator rizatriptan 5 mg tablet See Rx Instructions PO .COMPLEX 01/30/20 05/20/20 Rx #12 tab sildenafil (pulm.hypertension) 20 20 mg PO .COMPLEX #50 tab 04/21/20 05/20/20 Rx mg tablet benazepril 20 mg tablet 20 mg PO DAILY #90 tab 04/22/20 05/20/20 Rx hydrochlorothiazide 25 mg tablet 25 mg PO DAILY #90 tab 04/22/20 05/20/20 Rx ciprofloxacin HCl 500 mg tablet 500 mg PO BID 10 Days #20 tab 05/19/20 05/20/20 Rx metronidazole 500 mg tablet 500 mg PO TID 10 Days #30 tab 05/19/20 05/20/20 Rx turmeric 0 mg PO DAILY 05/20/20 05/20/20 History ciprofloxacin HCl [Cipro] 500 mg PO BID #14 tab 05/22/20 Rx metronidazole [Flagyl] 500 mg PO BID 7 Days #14 tab 05/22/20 Rx Past Med/Surg History Medical History Acquired deviated nasal septum External hemorrhoid Hypercholesterolemia Hypertension Left lower quadrant abdominal pain of unknown etiology Nephrolithiasis Oral soft tissue disease Surgical History History of hand surgery History of vasectomy Family History Father Prostate cancer Kidney stone Mother Hypertension Brother Hypertension Social History Smoking Status: Never smoker Second Hand Exposure: No; Hx Alcohol Use: Yes Alcohol type: beer Hx Substance Use: No Preferred Language: Cypriot Communication Ability: Effective Primary Health Care Nurse Required: No Beliefs That Will Affect Care: None marital status: Current Living Situation: Spouse Current Living Situation Comment: Lives in a Home current occupational status: employed Feels Safe at Home: Yes caffeine: Yes Assistive Devices: None Review of Systems Review of Systems: All systems reviewed & are unremarkable except as noted in HPI & below Physical Exam Constitutional: WD/WN, vitals as above ENMT: external ear and nose normal, oropharynx normal Neck: trachea midline, no thyromegaly Respiratory: normal respiratory effort, lungs clear to auscultation Cardiovascular: RRR, no murmur, no edema Gastrointestinal (Abdomen): Inspection/Auscultation: abdomen normal to inspection and normal bowel sounds Percussion/Palpation: + abdomen tender (Left lower quadrant pain), + guarding and abdomen soft; abdomen not rigid Musculoskeletal: no cyanosis or clubbing, extremities motor strength 5/5 Skin: no rashes, warm and dry Neurologic: moves all extremities and awake; not confused Psychiatric: A+Ox3, euthymic affect Genitourinary: no CVA tenderness Results & Data Results & Data ([facility]) Vital Signs (Past 12 Hours) Vital Signs Temp Pulse Pulse Resp BP BP Pulse Ox 05/20/20 20:30 82 22 109/77 97 05/20/20 20:00 80 21 124/86 96 05/20/20 19:30 85 21 125/72 96 05/20/20 19:00 84 20 121/81 97 05/20/20 18:30 90 14 120/83 97 05/20/20 18:01 90 22 96 05/20/20 18:00 88 17 119/84 95 05/20/20 17:54 90 23 96 05/20/20 17:51 91 H 20 130/82 96 05/20/20 17:48 93 H 21 130/82 96 05/20/20 17:25 36.2 C L 101 H 18 135/[address] OF THE ABDOMEN AND PELVIS WITH CONTRAST IMPRESSION: 1. Acute sigmoid diverticulitis with an associated small 1.4 cm diverticular abscess. If not recently performed, a nonemergent colonoscopy is recommended to exclude the unlikely possibility of an underlying lesion. 2. 4 mm left renal calculus. Medications Administered ER medications given: NSS 125 mils per hour Zosyn 4.5 g IV Code Status & VTE Plan Code Status Full VTE Prophylaxis Plan VTE Prophylaxis will be ordered: No PG Care Time/CCT Total # of Minutes Spent Total Time Spent with Patient: Total time spent is greater than 50% in coordination of care (as documented) at patient's floor/unit and/or counseling patient: Coding Level of Care Code 21379 Initial Inpt Care Lvl 2 Diagnoses Colonic diverticular abscess K57.20 Diverticulitis K57.92 Hypertension I10
--- NOTE | 2020-05-20 20:48 | Surgery Consultation ---
Date of Consultation May 20, 2020 Assessment & Plan (1) Colonic diverticular abscess: Patient has been admitted to the [facility] -continue abx. in the form of zosyn -NPO status -hydration with IVF -provide analgesics -it laura be preferable to avoid surgery until acute problem has resolved History of Present Illness Reason for Consultation: Diverticulitis History of Present Illness This is a 55-year-old male who presented to the emergency department at the recommendation of his primary care physician. I visited with this patient in room A12 in the emergency department. The patient notes that approximately 3 years ago he had an episode of diverticulitis. He notes at that time he had left lower quadrant abdominal pain. He had this pain for in excess of 1 week but finally saw the doctor and at that time he was told he had diverticulitis with an abscess. He says he did not require surgery and was treated successfully in a conservative manner with antibiotics. He does report having a colonoscopy shortly after he recovered from this episode and has been fine up until recently. He notes over the past week he has had some left lower quadrant abdominal pain. Because of this he had a telemedicine visit with his primary care physician who ultimately placed the patient on Cipro and Flagyl and oral form. Because of his history of diverticulitis he was seen in the office the following day and he had a CAT scan of the abdomen ordered. The scan was performed today and demonstrated acute sigmoid diverticulitis with a small 1.4 cm diverticular abscess. Because of the results of the CAT scan he was instructed to go to the emergency department by his family physician. At the time of my visit the patient noted he only have some moderate left lower quadrant pain. In the days leading up to his illness he says he has not had any nausea or vomiting. He says that his stools have been loose. He has not had any fevers, shakes, or chills. He does not note any palliative or provocative factors to his pain and notes that it is quite minor. He also notes the pain does not radiate. He had labs where his white blood cell count was 11.0. His hemoglobin, hematocrit, and platelet count were all within normal range. Chemistry profile did demonstrate a sodium of 134 and a normal potassium. His BUN had a slight elevation at 21 and his creatinine was within the normal range. A Covid test was performed and was noted to be negative. At the time of my exam he is resting comfortably in bed in no distress. He was also noted to be afebrile Allergies Allergy/AdvReac Type Severity Reaction Status Date / Time hydrocodone Allergy Mild pruiritis Verified 05/20/20 08:33 Sulfa (Sulfonamide Allergy Mild Itching Verified 05/20/20 08:33 Antibiotics) sulfamethoxazole Allergy Verified 05/20/20 08:33 Home Medications Medication Instructions Recorded Confirmed Type hydrocortisone 2.5 % topical cream 1 applic [place] BID PRN #30 g 01/30/20 05/20/20 Rx with perineal applicator rizatriptan 5 mg tablet See Rx Instructions PO .COMPLEX 01/30/20 05/20/20 Rx #12 tab sildenafil (pulm.hypertension) 20 20 mg PO .COMPLEX #50 tab 04/21/20 05/20/20 Rx mg tablet benazepril 20 mg tablet 20 mg PO DAILY #90 tab 04/22/20 05/20/20 Rx hydrochlorothiazide 25 mg tablet 25 mg PO DAILY #90 tab 04/22/20 05/20/20 Rx ciprofloxacin HCl 500 mg tablet 500 mg PO BID 10 Days #20 tab 05/19/20 05/20/20 Rx metronidazole 500 mg tablet 500 mg PO TID 10 Days #30 tab 05/19/20 05/20/20 Rx turmeric 0 mg PO DAILY 05/20/20 05/20/20 History Patient History Medical History Acquired deviated nasal septum External hemorrhoid Hypercholesterolemia Hypertension Left lower quadrant abdominal pain of unknown etiology Nephrolithiasis Oral soft tissue disease Surgical History History of hand surgery History of vasectomy Family History Father Prostate cancer Kidney stone Mother Hypertension Brother Hypertension Social History Smoking Status: Never smoker Second Hand Exposure: No; Do You Dip or Chew Tobacco: Yes (Occassional); Tobacco Cessation Education Requested by Patient: No Hx Alcohol Use: Yes Alcohol type: beer Hx Substance Use: No Preferred Language: Lebanese Communication Ability: Effective Block Saw Operator Required: No Beliefs That Will Affect Care: None marital status: Current Living Situation: Spouse Current Living Situation Comment: Lives in a Home current occupational status: employed Other Information That Helps Us Care for You: No Feels Safe at Home: Yes Safety Concerns: Feels Safe At This Time caffeine: Yes Assistive Devices: None Review of Systems Constitutional: no fever and no chills Eyes: no diplopia Ear, Nose, Mouth, Throat: no ear pain Respiratory: no cough and no dyspnea Cardiovascular: no chest pain Gastrointestinal: + abdominal pain and + diarrhea/loose stools; no nausea and no vomiting Genitourinary: no dysuria Musculoskeletal: no back pain Integumentary: no rash Neurologic: no localized weakness Physical Exam Constitutional: well developed and well nourished; no acute distress Eyes: no conjunctival abnormality ENMT: Ears: no hearing impairment Neck: trachea midline Respiratory: normal respiratory effort, lungs clear to auscultation Cardiovascular: Rate/Rhythm: regular rate and regular rhythm Gastrointestinal (Abdomen): Bowel sounds are present. Abdomen is soft and nondistended. There is no rebound tenderness or guarding. Patient did have minor pain elicited with deep palpation of the left lower quadrant. Musculoskeletal: No calf tenderness Neurologic: moves all extremities Psychiatric: A+Ox3, euthymic affect Results & Data ([facility]) Vital Signs (Past 12 Hours) Vital Signs Temp Pulse Pulse Resp BP BP Pulse Ox 05/20/20 20:30 82 22 109/77 97 05/20/20 20:00 80 21 124/86 96 05/20/20 19:30 85 21 125/72 96 05/20/20 19:00 84 20 121/81 97 05/20/20 18:30 90 14 120/83 97 05/20/20 18:01 90 22 96 05/20/20 18:00 88 17 119/84 95 05/20/20 17:54 90 23 96 05/20/20 17:51 91 H 20 130/82 96 05/20/20 17:48 93 H 21 130/82 96 05/20/20 17:25 36.2 C L 101 H 18 135/87 98 PG Care Time/CCT Total # of Minutes Spent Total Time Spent with Patient: Total time spent is greater than 50% in coordination of care (as documented) at patient's floor/unit and/or counseling patient: Coding Level of Care Code 12989 Inpt Consult Level 5 Diagnoses Colonic diverticular abscess K57.20
[2020-05-20] MEDS ORDERED: ACETAMINOPHEN 325 MG TAB PO PRN (21:31)
[2020-05-20] MEDS ORDERED: PIPERACILL/TAZOBAC CONSULT ACTIVE PRN (21:31)
[2020-05-21] MEDS: PIPERACILLIN/TAZOBACTAM 3.375 GM in DEXTROSE 5% 100 ML IV SCH ×4 (00:06→21:24)
[2020-05-21] MEDS: SODIUM CHLORIDE 0.9% 1000ML 1,000 ML IV SCH (00:10)
[2020-05-21] MEDS: ENALAPRIL MALEATE 10 MG TAB PO SCH (08:10)
--- NOTE | 2020-05-21 09:25 | Surgery Progress Note ---
Date of Service May 21, 2020 Assessment & Plan (1) Colonic diverticular abscess: He is doing well with conservative treatment. I would keep him on clear liquids only for today and continue the IV antibiotics. If he continues to improve and his white blood cell count improves potentially he could be discharged home tomorrow or Sunday on oral antibiotics. No indication for urgent surgical intervention. [facility] surgeons covering for the weekend. Admission and Anticipated Discharge Date Admission Date: May 20, 2020 Keny Leonard is here with acute diverticulitis. He is feeling better than he was last night. Physical Exam Physical Exam: Alert. No acute distress Heart is regular but slightly tacky Lungs are clear Abdomen is soft. Mild left lower quadrant tenderness. No peritoneal signs. Results & Data ([facility]) Vital Signs (Past 12 Hours) Vital Signs Temp Pulse Resp BP Pulse Ox 05/21/20 07:43 36.6 C 95 H 20 114/77 96 05/20/20 23:00 36.8 C 75 18 112/74 97 PG Care Time/CCT Total # of Minutes Spent Total Time Spent with Patient: Total time spent is greater than 50% in coordination of care (as documented) at patient's floor/unit and/or counseling patient: Coding Level of Care Code 30910 Subseq Hosp Care Lvl 3 Diagnoses Colonic diverticular abscess K57.20
[2020-05-21] MEDS: ENOXAPARIN INJ 40 MG/0.4 ML SYR SQ SCH (10:00)
--- NOTE | 2020-05-21 12:58 | Hospitalist Progress Note ---
Date of Service May 21, 2020 Assessment & Plan (1) Colonic diverticular abscess: Clear liquid diet. Surgery consult appreciated. Probable partial sigmoid resection at a later date after current infection cleared. Continue Zosyn therapy, currently day 1. (2) Diverticulitis: Acute, sigmoid area. Treatment as above (3) Hypertension: Stable. Continue medical management (4) Hypercholesterolemia: Stable. Continue medical management Disposition: Eventual discharge to home Admission and Anticipated Discharge Date Admission Date: May 20, 2020 Subjective Alert and oriented. Pleasant. He will probably undergo partial elective sigmoid resection at a later date once current infection has resolved. Currently on parenteral Zosyn, day 1. Clear liquid diet will be allowed. IV fluids tapered down. Review of Systems Review of Systems: Constitutional-no fever or chills ENT-no blurred vision, no double vision, no epistaxis, no sore throat Respiratory-no cough, no wheezing, no shortness of breath Cardiac-no palpitations, no chest pain, no syncope GI-no nausea, vomiting, diarrhea, melena, hematochezia. Mild left lower quadrant discomfort -no urinary retention, no urinary incontinence, no dysuria, no hematuria Musculoskeletal-no joint pain, no muscle tenderness Skin-no bruising, no rashes, no pruritus Neuro-no isolated weakness, no paresthesia, no weakness Psych-no depression, no anxiety Physical Exam Physical Exam: General-alert and oriented x3, no fevers, no chills HEENT-head atraumatic and normocephalic, TMs intact bilaterally, pupils equal and reactive to light, extraocular muscles intact Neck-no lymphadenopathy or thyromegaly, trachea midline Chest-clear to auscultation percussion. No rales wheezing or rhonchi Cardiac-regular rate and rhythm, normal S1 and S2, no murmurs Abdomen-normal bowel sounds, no hepatosplenomegaly. Left lower quadrant tenderness but no rebound or guarding Extremities-no cyanosis, clubbing, or edema Neuro-cranial nerves II through XII intact, motor and sensory function within normal limits, strength symmetrical 5/5, no focal deficits Psych-normal affect, normal mood Results & Data Results & Data ([facility]) Vital Signs (Past 12 Hours) Vital Signs Temp Pulse Resp BP Pulse Ox 05/21/20 11:40 37.1 C 74 20 124/78 94 05/21/20 07:43 36.6 C 95 H 20 114/77 96 Laboratory Results 05/20/20 17:47 05/20/20 17:47 PG Care Time/CCT Total # of Minutes Spent Total Time Spent with Patient: Total time spent is greater than 50% in coordination of care (as documented) at patient's floor/unit and/or counseling patient: Coding Level of Care Code 19332 Subseq Hosp Care Lvl 3 Diagnoses Colonic diverticular abscess K57.20 Diverticulitis K57.92 Hypertension I10 Hypercholesterolemia E78.00
[2020-05-22] MEDS: PIPERACILLIN/TAZOBACTAM 3.375 GM in DEXTROSE 5% 100 ML IV SCH (05:41)
[2020-05-22 07:07] LABS: Basophils # (auto) 0.05 K/uL (0-0.2); Basophils % (auto) 0.8 %; Eosinophils # (auto) 0.11 K/uL (0-0.5); Eosinophils % (auto) 1.7 %; Hematocrit (blood only) 43.8 % (42-52); Hemoglobin 15.5 g/dL (14.0-18.0); Immature Granulocytes # (auto) 0.01 K/uL (0.00-0.02); Immature Granulocytes % (auto) 0.2 %; Lymphocytes # (auto) 1.86 K/uL (1.2-3.4); Lymphocytes % (auto) 29.1 %; Mean Corpuscular Hgb Conc 35.4 g/dL (32-36); Mean Corpuscular Volume 90.5 fL (80-100); Mean Platelet Volume 8.2 fL (7.4-10.4); Monocytes # (auto) 0.79 K/uL (0.11-0.59); Monocytes % (auto) 12.3 %; Neutrophils # (auto) 3.58 K/uL (1.4-6.5); Neutrophils % (auto) 55.9 %; Platelet Count 219 K/uL (130-400); RDW Coefficient of Variation 11.7 % (11.5-14.5); Red Blood Count 4.84 M/uL (4.7-6.1)
[2020-05-22] MEDS: ENALAPRIL MALEATE 10 MG TAB PO SCH (08:36)
[2020-05-22] MEDS: ENOXAPARIN INJ 40 MG/0.4 ML SYR SQ SCH ×2 (08:37→08:38)
--- NOTE | 2020-05-22 10:46 | Surgery Progress Note ---
Date of Service F/U diverticulitis, pt is doing fine, no abdominal pain, no diarrhea, no fever, tolerated clear diet, normal WBC May 22, 2020 Assessment & Plan (1) Colonic diverticular abscess: (2) Diverticulitis: F/U colon diverticulitis with small abscess pt is doing fine, no abdominal pain, tolerated clear diet, pt wants to go home today, the care instruction was given, po Cipro + flagyl x 7 days, F/U DR. Carbone 2 weeks, Present on Admission?: Yes Admission and Anticipated Discharge Date Admission Date: May 20, 2020 Subjective Alert and oriented. Pleasant. He will probably undergo partial elective sigmoid resection at a later date once current infection has resolved. Currently on parenteral Zosyn, day 1. Clear liquid diet will be allowed. IV fluids tapered down. Physical Exam Constitutional: WD/WN, vitals as above well developed and well nourished Neck: trachea midline, no thyromegaly Respiratory: normal respiratory effort, lungs clear to auscultation normal respiratory effort Cardiovascular: RRR, no murmur, no edema Rate/Rhythm: regular rate and regular rhythm Gastrointestinal (Abdomen): normal bowel sounds, soft, nontender, no hepatosplenomegaly soft, NT, ND, BS + Musculoskeletal: no cyanosis or clubbing, extremities motor strength 5/5 Neurologic: awake Psychiatric: Orientation: alert and oriented x 3 Results & Data ([facility]) Vital Signs (Past 12 Hours) Vital Signs Temp Pulse Resp BP Pulse Ox 05/22/20 07:51 36.5 C 58 L 18 111/74 98 Laboratory Results Abnormal lab results 05/22/20 Range/Units 06:49 [place] # (Auto) 0.79 H (0.11-0.59) K/uL
--- NOTE | 2020-05-22 12:03 | Discharge Summary ---
Date of Service May 22, 2020 Principal Diagnosis Pt is doing well. He is tolerating clears without issue. No further abd pain. Denies n/v. Pt denies fever, SOB, chest pain,c/d, LE pain or swelling. He would like to go home. Discharge Exam Constitutional WD/WN, vitals as above Eyes normal visual [place] by confrontation and + anicteric sclerae Neck normal visual inspection and trachea midline Respiratory normal respiratory effort, lungs clear to auscultation Cardiovascular Rate/Rhythm: regular rate and regular rhythm Gastrointestinal (Abdomen) Inspection/Auscultation: abdomen not distended Percussion/Palpation: abdomen soft; abdomen nontender Musculoskeletal Head/Neck/Chest: normocephalic and head atraumatic Skin no rashes, warm and dry Neurologic awake; not confused Speech / Cognition: normal speech Psychiatric A+Ox3, euthymic affect Discharge Data Allergies Allergy/AdvReac Type Severity Reaction Status Date / Time hydrocodone Allergy Mild pruiritis Verified 05/20/20 08:33 Sulfa (Sulfonamide Allergy Mild Itching Verified 05/20/20 08:33 Antibiotics) sulfamethoxazole Allergy Verified 05/20/20 08:33 Consultations 05/20/20 17:39 ED Decision to Admit Stat Hospital Course (1) Colonic diverticular abscess: Followed by gen surg, plans for probable partial sigmoid resection at a later date after current infection cleared. Maintained on Zosyn therapy during admission Gen surg recs for cipro/flagyl x7 days on d/c (2) Diverticulitis: Acute, sigmoid area. Treatment as above (3) Hypertension: Stable. Continue medical management (4) Hypercholesterolemia: Stable. Continue medical management Total Time Total Time Spent Total Time Spent (In Minutes): >30 Total Time Includes: Examination of the Patient, Discharge Planning, Medication Reconciliation, Communication With Other Providers and Other Discharge Plan Discharge Items Patient Disposition: Home - Self-Care Reason For Visit: ACUTE DIVERTICULITIS WITH ABSCESS Discharge Diagnosis: acute diverticulitis, with abscess Condition on Discharge: Good Activity: As commented below Lifting: Gradually increase as tolerated Bathing: No limitations and May shower/bathe in 3 days Sexual Activity: When tolerated Exercise/Sports: Rest today and Gradually increase as tolerated Driving/Machine Use: Resume 3 days after discharge Non-emergency contact: Surgeon Call non-emergency contact if: you have any medication questions, your symptoms worsen, your pain is not controlled, your pain is worsening and your pain is unusual for you Follow-up/Referrals: Cuba Washington III, MD [Primary Care Provider] - (follow up Dr. Carbone 2 weeks, Agree-I have documented within the medical record.) Curtis Carbone, DO [Surgeon] - (2 weeks f/u) Dietitian Info: full liquid for 2 days, if tolerated it, then regular diet Diet: Full liquid Addtl Attending Provider Instructions: Follow up with Dr. Carbone in 2 weeks Pending Studies at Discharge: No Stand-Alone Forms: My [facility] [employer], Smoking Cessation Medications and DC Order Prescriptions: New ciprofloxacin HCl [Cipro] 500 mg tablet 500 mg PO BID Qty: 14 RF: 0 metronidazole [Flagyl] 500 mg tablet 500 mg PO BID 7 Days Qty: 14 RF: 0 Continued benazepril 20 mg tablet 20 mg PO DAILY Qty: 90 RF: 3 hydrochlorothiazide 25 mg tablet 25 mg PO DAILY Qty: 90 RF: 3 rizatriptan 5 mg tablet See Rx Instructions PO .COMPLEX Qty: 12 RF: 3 hydrocortisone [Anusol-HC] 2.5 % cream with perineal applicator 1 applic [place] BID PRN (Reason: hemorrhoids) Qty: 30 RF: 2 ciprofloxacin HCl 500 mg tablet 500 mg PO BID 10 Days Qty: 20 RF: 0 metronidazole 500 mg tablet 500 mg PO TID 10 Days Qty: 30 RF: 0 sildenafil (pulm.hypertension) 20 mg tablet 20 mg PO .COMPLEX Qty: 50 RF: 5 turmeric 400 mg Capsule 0 mg PO DAILY RF: 0 Discharge Orders: Discharge Order (Routine); Ordered 05/22/20 Ordered By: Jamey Turner Admission Data Admit Date/Time: 05/20/20 19:42 Attending Provider: Aimee Mcintosh Admit Provider: Samuel Lares Primary Care Provider: Cuba Washington III Other Providers: Samuel Lares Other Interventions: Discharge Summary Assessment (RN) Last Done: 05/22/20 11:09 Coding Level of Care Code D/C Day Management >30 mins Diagnoses Colonic diverticular abscess K57.20 Diverticulitis K57.92 Hypertension I10 Hypercholesterolemia E78.00
== END 2020-05-22 13:41 | disposition home or self-care (01) ==
LOC: ED 17:20 → SUATTDRO 19:42 → INTOOBSV 19:42 → 2N 19:42